=== PATIENT | male | born 1970 | race Caucasian/White ===

== ENCOUNTER 2024-06-14 13:47 | Outpatient (REF) | payer MEDICARE, MEDICAID, SELFPAY ==
--- NOTE | ~2024-06-14 | XR_ITS ---
EXAMINATION: XR CHEST CLINICAL INFORMATION: chronic cough, rhoncus on PE COMPARISON: July 07, 2006 is not available on PACS. TECHNIQUE: 2 views of the chest were obtained. FINDINGS: No consolidation, pleural effusion or pneumothorax. Subsegmental atelectasis versus scarring, right middle lung lobe. Cardiomediastinal silhouette size is normal. Calcified plaque thoracic aortic arch. Mild to moderate multilevel thoracic spondylosis. XR/XR chest 2V IMPRESSION: No acute airspace disease. Electronically signed by: Armando Acosta MD 06/14/2024 02:41 PM EDT
--- OUTSIDE RECORDS SUMMARY | 2024-06-14 16:08 | XMS_ITS | Clinical Summary ---
Author Organization [employer] Address [address] [facility] 7[address] [place] [address] Care Team Providers Care Probation And Parole Officer Name Role Phone Kray Maher Primary Care Provider [phone] Allergies No known active allergies Medications * This document contains information received from the source organization and may not represent a complete record from that organization. FLUoxetine (PROzac) 20 MG capsuleIndications:De pressive disorder TOME RAMÍREZ CAPSULA TODOS LOS CURTIS EN LA MANANA 90 capsule 3 3 Active gemfibrozil (Lopid) 600 MG tabletIndications:Pur e hyperglyceridemia TOME RAMÍREZ TABLETA POR VIA ORAL DOS VECES AL SIXTO 30 MINUTES BEFORE MORNING AND EVENING MEAL 180 tablet 3 3 Active azithromycin (Zithromax) 250 MG tabletIndications:Bro nchitis Take 2 tabs PO daily x 1d then 1 tab PO daily on D2 to D5 6 tablet 5 Active predniSONE (Deltasone) 20 MG tabletIndications:Bro nchitis Take 3 tablets (60 mg) by mouth Once per day for 5 days. 15 tablet 5 025 Active Active Problems Problem Noted Date Diagnosed Date Bronchitis 06/14/2024 Assessment & Plan (06/14/2024 2:41 PM EDT): I advised to drink plenty of fluids and rest Chest x-ray ordered patient will be contacted with results I will treat patient with Z-Rodney and prednisone for 5 days Patient reports he has had an episode similar to this before and he was hospitalized due to bronchitis he tells me his oxygen went down during hospitalization in light of this information I decided to put a referral in to pulmonology ED precautions reviewed with patient Grief 02/12/2024 Adjustment disorder with depressed mood 02/12/20 24 Soft tissue infection 01/09/2023 01/09/2023 Tachycardia 01/09/2023 01/09/2023 Depressive disorder 12/24/2013 01/09/2023 Pure hyperglyceridemia 10/20/2011 Essential hypertension 09/08/2011 3 Insomnia 09/08/2011 01/09/2023 Proteinuria 09/08/2011 01/09/2023 Mild intellectual disability 1970 Encounters Date Type Department Care Team Description 06/14/2024 1:00 PM EDT Office Visit [facility] [place] [address] Diana Kerr MD Bronchitis from Last 3 Months Immunizations Name Administration Dates Next Due Influenza injectable quadrivalent preservative f ree 01/04/2023 Influenza, seasonal, injectable, preservative fr ee 02/26/2024 Pfizer Covid-19 Vaccine 12+ travis-sucrose (Carpenter C ap) 09/14/2020,08/24/2020 Tdap 06/14/2021 Social History Tobacco Use Types Packs/Day Years Used Date Smoking Tobacco: Never Passive Smoke Exposure: Never Smokeless Tobacco: Never Tobacco Cessation:Counseling Given: Not Answered Alcohol Use Standard Drinks/Week Comments Never 0 (1 standard drink = 0.6 oz pur e alcohol) Depression Answer Date Recorded Patient Health Questionnaire-9 Score 11 02/12/2024 Patient Health Questionnaire-9 Score 11 02/12/2024 Last PHQ-9: Questionnaire Data Not on file 1 04/13/2023 Housing Stability Answer Date Recorded What is your housing situation today? I have conchita rodriguez 01/10/[address] you li ve. Do you have problems with any of the following? None of the above 01/10/2023 Food Insecurity Answer Date Recorded Within the past 12 months, y ou worried that your food would run out before you got money to buy more: Never True 01/10/2023 Within the past 12 months,th e food you bought just didn't last and you didn't have enough money to get more: Never True Transportation Answer Date Recorded In the past 12 months, has l ack of transportation kept you from medical appts, meetings, work or from getting things needed for daily living? No 01/10/2023 Utilities Answer Date Recorded In the past 12 months, has t he electric, gas, oil or water company threatened to shut off services in your home? No 01/10/2023 Depression Answer Date Recorded Patient Health Questionnaire-2 Score 3 02/12/2024 Sex and Gender Information Value Date Recorded Sex Assigned at Male 01/24/2022 10:16 AM EDT Legal Sex Male 10:16 AM EDT Gender Identity Male 01/24/2022 10:16 AM EDT Sexual Orientation Straight 01/24/2022 10 :16 AM EDT Last Filed Vital Signs Vital Sign Reading Time Taken Comments Blood Pressure 128/93 06/14/2024 12:50 PM EDT Pulse 103 06/14/2024 12:50 PM EDT Temperature 36.7 ??C (98 ??F) 06/14/2024 12:50 PM EDT Respiratory Rate 20 06/14/2024 12:50 PM EDT Oxygen Saturation 94% 06/14/2024 12:50 PM EDT Inhaled Oxygen Concentration - - Weight 70.8 kg (156 lb) 06/14/2024 12:50 PM EDT Height 163.8 cm (5' 4.5 ) 06/14/2024 12:50 PM ED T Body Mass Index 26.36 06/14/2024 12:50 PM EDT Plan of Treatment Upcoming Encounters Date Type Department Care Team (Late st Contact Info) Description 07/01/2024 9:30 AM EDT Office Visit [facility] [address] [place] [address] Kary Maher ANP [address] [place], [place] [phone] Health Maintenance Due Date Last Done Comments CT Colonography 1969 Colonoscopy 1969 FIT 1970 FOBT 1970 Sigmoidoscopy 1969 Alcohol/Substance Use Screening 1981 Hepatitis B Vaccines (1 of 3 - 19+ 3-dose series) 1988 Pneumococcal Vaccine: 50+ Years (1 of 1 - PCV) 2019 Zoster Vaccines (1 of 2) 2019 COVID-19 Vaccine (5 - season) 2023 07/06/2021, 03/09/2021, 09/14/2020, Additional history exists SDOH Screening 01/11/2024 01/10/2023 Depression Monitoring (PHQ-9) 08/11/2024 02/12/2024, 02/12/2024 Depression Screening 02/11/2025 02/12/2024, 02/12/20 24 Tobacco Screening 06/14/2025 06/14/2024 Colorectal Cancer Screening 01/16/2026 FIT DNA/Cologuard 01/16/2026 01/16/2023 Lipid Panel 05/10/2026 05/10/2021 DTaP/Tdap/Td Vaccines (2 - Td or Tdap) 06/15/2031 06/14/2021 RSV Patients and Patients Aged 60 years or older (1 - 1-dose 75+ series) 2044 HIV Screening Completed 05/10/2021 Hepatitis C Screening Completed 05/10/2021 Influenza Vaccine Completed 02/26/2024, 01/04/2023 HIB Vaccines Aged Out No longer eligi ble based on patient's age to complete this topic HPV Vaccines Aged Out No longer eligi ble based on patient's age to complete this topic Hepatitis A Vaccines Aged Out No long er eligible based on patient's age to complete this topic IPV Vaccines Aged Out No longer eligi ble based on patient's age to complete this topic Meningococcal Vaccine Aged Out No ahmet tomas eligible based on patient's age to complete this topic RSV under 20 months Aged Out No longe r eligible based on patient's age to complete this topic Rotavirus Vaccines Aged Out No longer eligible based on patient's age to complete this topic Procedures Procedure Name Priority Date/Time Associated Diagnosis Comments XR CHEST 2 VIEWS Routine 06/14/2024 1:50 PM EDT Bronchitis POCT COVID-19 AG MEYERS ID NOW Routine 06/14/2024 1:36 PM EDT Bronchitis POCT INFLUENZA A (ID NOW RAPID MOLECULAR) Routine 06/14/2024 1:36 PM EDT Bronchitis POCT INFLUENZA B (ID NOW RAPID MOLECULAR) Routine 06/14/2024 1:25 PM EDT Bronchitis LAB COLOGUARD?? COLON CANCER SCREEN Routine 01/16/2023 9:00 AM EDT Screening for malignant neoplasm of colon ZZZ HISTORICAL HEPATITIS C AB W/REFL TO HCV RNA, QN, PCR Routine 05/10/2021 10:31 AM EST HIV 1/2 ANTIGEN/ANTIBODY, FOURTH GENERATION W/RFL Routine 05/10/2021 10:31 AM EST LIPID PANEL, STANDARD Routine 05/10/2021 10:31 AM EST from Last 3 Months or Most Recently Relevant to Health Maintenance Results * XR Chest 2 Views (06/14/2024 1:50 PM EDT) Anatomical Region Laterality Modality Chest Radiographic Chela ging 06/14/2024 1:50 PM EDT Narrative 06/14/2024 2:44 PM EDT ?[facility] ?[address] ?[place] [id number] ?XRay Report ? Signed ? Patient: Renner,Allen ?MR#: [id number] ?? 65 ? : 1970 ?Acct:[id number] ? Age/Sex: 54 / M ?ADM Date: 06/14/24 ? Loc: HO.HHCX ? Attending Dr: Diana Kevin MD ? Ordering Physician: Diana Kerr MD ?? Date of Service: 06/14/24 ?? Procedure(s): XR chest 2V ?? Accession Number(s): [id number] ? cc: Diana Kerr MD ? EXAMINATION: ?? XR CHEST ? CLINICAL INFORMATION: ?? chronic cough, rhoncus on PE ? COMPARISON: ?? July 07, 2006 is not available on PACS. ? TECHNIQUE: ?? 2 views of the chest were obtained. ? FINDINGS: ?? No consolidation, pleural effusion or pneumothorax. ?? Subsegmental atelectasis versus scarring, right middle lung lobe. ?? Cardiomediastinal silhouette size is normal. Calcified plaque thoracic ?? aortic arch. Mild to moderate multilevel thoracic spondylosis. ? XR/XR chest 2V ?? IMPRESSION: ?? No acute airspace disease. ? Electronically signed by: ??Armando Acosta MD ??06/14/2024 02:41 PM ?? EDT RP ? Dictated By: ?Armando Rahman MD ? Signed By: ?<Electronically signed by Armando Osorio MD in OV> ? 06/14/24 1441 ? DD/ 1350 ? TD/TT: 06/14/24 1413 ? Glass Beveller: ? Procedure Note Roxanne Stanley - 06/14/2024 [place] [address] XRay Report Signed Patient: Allen RennerMR#: [id number] 65 : 1970Acct:[id number] Age/Sex: 54 / MADM Date: 06/14/24 Loc: HO.HHCX Attending Dr: Diana Kevin MD Ordering Physician: Diana Kerr MD Date of Service: 06/14/24 Procedure(s): XR chest 2V Accession Number(s): [id number] cc: Diana Kerr MD EXAMINATION: XR CHEST CLINICAL INFORMATION: chronic cough, rhoncus on PE COMPARISON: July 07, 2006 is not available on PACS. TECHNIQUE: 2 views of the chest were obtained. FINDINGS: No consolidation, pleural effusion or pneumothorax. Subsegmental atelectasis versus scarring, right middle lung lobe. Cardiomediastinal silhouette size is normal. Calcified plaque thoracic aortic arch. Mild to moderate multilevel thoracic spondylosis. XR/XR chest 2V IMPRESSION: No acute airspace disease. Electronically signed by: Armando Acosta MD 06/14/2024 02:41 PM EDT Dictated By: Armando Rahman MD Signed By: <Electronically signed by Armando Osorio MDin OV> 06/14/24 1441 DD/ 1350 TD/TT: 06/14/24 1413 Glass Beveller: us Diana Kevin MD IMG XR PROCEDURES Fin al Result * POCT Rapid Influenza A MEYERS ID NOW (06/14/2024 1:36 PM EDT) Influenza A Negative Negative, Indeterminate [facility] QC Media Lot # [id number] [facility] Lot# Expiration Date [facility] Swab 06/14/2024 1:36 PM EDT Diana Kevin MD POINT OF CARE TEST EN TER/EDIT ORDERABLES Final Result Performing Organization Address City/State/[facility] Co de Phone Number [facility] [address] [place] [phone] * POCT Rapid Covid-19 MEYERS ID NOW (06/14/2024 1:36 PM EDT) Coronavirus Antigen PCR Negative Negative, Indeterminate, None Detected, Invalid, Specimen unsatisfactory for evaluation, Weakly Positive QC Media Lot # [id number] Lot# Expiration Date ,026 Swab 06/14/2024 1:36 PM EDT Diana Kevin MD POINT OF CARE TEST EN TER/EDIT ORDERABLES Final Result * POCT Rapid Influenza B MEYERS ID NOW (06/14/2024 1:25 PM EDT) Influenza B Negative Negative, Indeterminate [facility] QC Media Lot # [id number] [facility] Lot# Expiration Date [facility] Swab 06/14/2024 1:25 PM EDT us Diana Kevin MD POINT OF CARE TEST EN TER/EDIT ORDERABLES Final Result [facility] [address] [place] [address] [phone] * Cologuard?? colon cancer screening (01/16/2023 9:00 AM EDT) Cologuard Result Negative Negative 01/26/20 2:34 AM EDT [facility] (CLIA #:[id number]) Comment: NEGATIVE TEST RESULT. A negative Cologuard result indicates a low likelihood that a colorectal cancer (CRC) or advanced adenoma (adenomatous polyps with more advanced pre-malignant features) ??is present. The chance that a person with a negative Cologuard test has a colorectal cancer is less than 1 in 1500 (negative predictive value >99.9%) or has an ??advanced adenoma is less than ??5.3% (negative predictive value 94.7%). These data are based on a prospective cross-sectional study of 10,000 individuals at average risk for colorectal cancer who were screened with both Cologuard and colonoscopy. (Vladialmj T. et al, N Engl J Med 2014;370(14):1286- 1297) The normal value (reference range) for this assay is negative. COLOGUARD RE-SCREENING RECOMMENDATION: Periodic colorectal cancer screening is an important part of preventive healthcare for asymptomatic individuals at average risk for colorectal cancer. ??Following a negative Cologuard result, the [place] Cancer Society and U.S. Multi-Society Task Force screening guidelines recommend a Cologuard re-screening interval of 3 years. References: [place] [employer] Guideline for Colorectal Cancer Screening: https://www.cancer.org/cancer/ejkrf-dqexsm-hxdbrp/ecbyjorvg-crfbvtqgg-hyqhmzp/ac s-rec ommendations.html.; Ollie VERDE, Khalif RUSSELL, Tonio WongK, Colorectal Cancer Screening: Recommendations for Physicians and Patients from the U.S. Multi-Society Task Force on Colorectal Cancer Screening , Am J Gastroenterology 2017; 112:4139-6877. TEST DESCRIPTION: Composite algorithmic analysis of stool DNA-biomarkers with hemoglobin immunoassay. ?? Quantitative values of individual biomarkers are not reportable and are not associated with individual biomarker result reference ranges. Cologuard is intended for colorectal cancer screening of adults of either sex, 45 years or older, who are at average-risk for colorectal cancer (CRC). Cologuard has been approved for use by the U.S. FDA. The performance of Cologuard was established in a cross sectional study of average-risk adults aged 50-84. Cologuard performance in patients ages 45 to 49 years was estimated by sub-group analysis of near-age groups. Colonoscopies performed for a positive result may find as the most clinically significant lesion: colorectal cancer [4.0%], advanced adenoma (including sessile serrated polyps greater than or equal to 1cm diameter) [20%] or non- advanced adenoma [31%]; or no colorectal neoplasia [45%]. These estimates are derived from a prospective cross-sectional screening study of 10,000 individuals at average risk for colorectal cancer who were screened with both Cologuard and colonoscopy. (Melissa Oliver et al, N Engl J Med 2014;370(14):6614-2952.) Cologuard may produce a false negative or false positive result (no colorectal cancer or precancerous polyp present at colonoscopy follow up). A negative Cologuard test result does not guarantee the absence of CRC or advanced adenoma (pre-cancer). The current Cologuard screening interval is every 3 years. ([place] [employer] and U.S. Multi-Society Task Force). Cologuard performance data in a 10,000 patient pivotal study using colonoscopy as the reference method can be accessed at the following location: www.GigPark/results. Additional description of the Cologuard test process, warnings and precautions can be found at www.MPOWER Mobilerd.com. Stool specimen (specimen) 01/16/2023 9:00 AM EDT 01/18/2023 9:[address] [facility] MOLECULAR DIAGNOSTICS ORDERA BLES Final Result [facility] (CLIA #:[id number]) [place] [address], * HEPATITIS C AB W/REFL TO HCV RNA, QN, PCR (05/10/2021 10:31 AM EST) HEPATITIS C ANTIBODY NON-REACT JACI NON-REACT JACI [facility] INDEX 0.01 <1.00 [facility] Comment: ?? HCV antibody was non-reactive. There is no laboratory ?? evidence of HCV infection. ?? In most cases, no further action is required. However, if recent HCV exposure is suspected, a test for HCV RNA (test code 02335) is suggested. ?? For additional information please refer to http://Spotify.Clone/faq/RYZ17w1 (This link is being provided for informational/ educational purposes only.) ?? 05/10/2021 10:3 1 AM EST us Kary Maher ANP HISTORICAL/NON ORDERABLE LABS Fi nal Result [facility] [address] * HIV 1/2 ANTIGEN/ANTIBODY,FOURTH GENERATION W/RFL (05/10/2021 10:31 AM EST) Pathologist [facility] HIV-1/2 ANTIGEN AND ANTIBODIES, 4TH GENERATION W/ REFLEX NON-REACT JACI NON-REACT JACI [facility] Comment: HIV-1 antigen and HIV-1/HIV-2 antibodies were not detected. There is no laboratory evidence of HIV infection. ?? PLEASE NOTE: This information has been disclosed to you from records whose confidentiality may be protected by state law. ??If your state requires such protection, then the state law prohibits you from making any further disclosure of the information without the specific written consent of the person to whom it pertains, or as otherwise permitted by law. A general authorization for the release of medical or other information is NOT sufficient for this purpose. ? For additional information please refer to http://Spotify.Clone/faq/FSY412 (This link is being provided for informational/ educational purposes only.) ? The performance of this assay has not been clinically validated in patients less than 2 years old. ?? 05/10/2021 10:3 1 AM EST us Preston Gunnar DE LEÓN LAB BLOOD ORDERABLES Final Resul t Performing Organization Address [facility] Co de Phone Number [facility] [address] * (ABNORMAL) LIPID PANEL, STANDARD (05/10/2021 10:31 AM EST) Chol/HDLC Ratio 5.3(H) <5.0 (calc) [facility] Cholesterol, Total 226(H) <200 mg/dL [facility] HDL Cholesterol 43 > OR = 40 mg/dL [facility] LDL Cholesterol 142(H) mg/dL (calc) [facility] Comment: Reference range: <100 ?? Desirable range <100 mg/dL for primary prevention; ?? <70 mg/dL for patients with CHD or diabetic patients ?? with > or = 2 CHD risk factors. ?? LDL-C is now calculated using the Dalton ?? calculation, which is a validated novel method providing ?? better accuracy than the Friedewald equation in the ?? estimation of LDL-C. ?? Willem WEATHERS et al. SORIN. 2013;310(19): 5437-1928 ?? (http://education.H2Mob/faq/ITV315) Non-HDL Cholesterol 183(H) <130 mg/dL (calc) [facility] Comment: For patients with diabetes plus 1 major ASCVD risk ?? factor, treating to a non-HDL-C goal of <100 mg/dL ?? (LDL-C of <70 mg/dL) is considered a therapeutic ?? option. Triglycerides 265(H) <150 mg/dL [facility] Comment: ?? If a non-fasting specimen was collected, consider repeat triglyceride testing on a fasting specimen if clinically indicated. ?? Taz et al. J. of Clin. Lipidol. 2015;9:129-169. ?? 05/10/2021 10:3 1 AM EST us Preston Gunnar ANP LAB BLOOD ORDERABLES Final Resul t Performing Organization Address City/[facility]/ZIP Co de Phone Number [facility] [address] from Last 3 Months or Most Recently Relevant to Health Maintenance [place] [address] [address] [employer]ARE [facility] MEDICARE ADVANTAGE Care Teams Probation And Parole Officer Relationship Specialty Start Date End Date Kary Maher ANP [address] [place] [phone] PCP - General Family Medicine 04/19/21
--- OUTSIDE RECORDS SUMMARY | 2024-06-14 16:08 | XMS_ITS | Encounter Summary ---
Author Organization [employer] Address [address] [facility] [address] [place] [address] Care Team Providers Care Natural Resources Technician Name Role Phone Kary Maher GENET Primary Care Provider [phone] Encounter Details Date Type Department Care Team ([facility] Contact Info) Description 05/16/2023 Orders Only [facility] [address] [place] [address] ProviderCarole MD Social History Tobacco Use Types Packs/Day Years Used Date Smoking Tobacco: Never Smokeless Tobacco: Never Alcohol Use Standard Drinks/Week Comments Never 0 (1 standard drink = 0.6 oz pur e alcohol) Depression Answer Date Recorded Patient Health Questionnaire-9 Score 12 01/10/2023 Patient Health Questionnaire-9 Score 12 01/10/2023 Last PHQ-9: Questionnaire Data Not on file 1 Housing Stability Answer Date Recorded What is [...] Answer Date Recorded Patient Health Questionnaire-2 Score 4 01/10/2023 Sex and Gender Information Value Date Recorded Sex Assigned at Male 01/24/2022 10:16 AM EDT Legal Sex Male 10:16 AM EDT Gender Identity Male 01/24/2022 10:16 AM EDT Sexual Orientation Straight 01/24/2022 10 :16 AM EDT documented as of this encounter Plan of Treatment Upcoming Encounters Date Type Department Care Team (Late st Contact Info) Description 07/01/2024 9:30 AM EDT Office Visit [facility] [address] [place] [address] Kary Maher ANP [address] [place] [address] documented as of this encounter Procedures Procedure Name Priority Date/Time Associated Diagnosis Comments PULMONARY FUNCTION TESTING Routine 01/17/2022 11:07 AM EDT documented in this encounter Results * Pulmonary function testing (01/17/2022 11:07 AM EDT) us Historical Provider MD PFT ORDERABLES Final Res ult documented in this encounter Visit Diagnoses Not on filedocumented in this encounter Additional Health Concerns Assessment Noted Time PHQ-9 Depression Total Score: 12 023 2:44 PM EDT documented as of this encounter Care Teams Natural Resources Technician Relationship Specialty Start Date End Date Kary Maher ANP [address] [place] [address] PCP - General Family Medicine 04/19/21 documented as of this encounter
--- OUTSIDE RECORDS SUMMARY | 2024-06-14 16:08 | XMS_ITS | Encounter Summary ---
Author Organization [employer] [facility] Address [address] [facility] 7t [place] [address] Care Team Providers Care Pouncer Machine Name Role Phone Kary Maher Primary Care Provider [phone] Reason for Referral * Consultation (Routine) - Pending Review Specialty Diagnoses / Procedures Referred By Jeronimo quick Referred To Contact Pulmonary Disease Diagnoses Bronchitis Diana Kerr MD [address] [place] [phone] Phone: tel: fax: Referral ID Status Reason Start Date Expiration Date Visits Requested Visits Authorized [id number] Pending Review Specialty Services Required 06/14/2024 06/14/2025 1 1 Encounter Details Date Type Department Care Team ([facility] st Contact Info) Description 06/14/2024 1:00 PM EDT Office Visit [facility] [address] [place] [phone] Diana Kerr MD [address] [place] [phone] Bronchitis Social History Tobacco Use Types Packs/Day Years [...] AM EDT documented as of this encounter Last Filed Vital Signs Vital Sign Reading [...] Mass Index 26.36 06/14/2024 12:50 PM EDT documented in this encounter Progress Notes * Diana Kevin MD - 06/14/2024 1:00 PM EDT SUBJECTIVE: Allen Renner is a 54 y.o. year old male who presents for cough . Acute Concerns: Patient reports he has been having for the cough with white phlegm for the past 2 months, he also reports body aches chest pain with cough he also reports a week ago he had 1 episode of fever and he has been having nausea and a few episodes of diarrhea denies recent travel or sick contacts Social History Social History Narrative Not on file Patient Active Problem List Diagnosis Depressive disorder Essential hypertension Insomnia Mild intellectual disability Proteinuria Pure hyperglyceridemia Soft tissue infection Tachycardia Grief Adjustment disorder with depressed mood Bronchitis No family history on file. Review of Systems Constitutional: Positive for chills and fatigue. Negative for activity change, appetite change, diaphoresis, fever and unexpected weight change. HENT: Negative. Respiratory: Positive for cough and chest tightness. Negative for apnea, choking, shortness of breath, wheezing and stridor. Pleuritic chest pain Cardiovascular: Negative. Gastrointestinal: Positive for diarrhea and nausea. Negative for abdominal distention, abdominal pain, anal bleeding, blood in stool, constipation, rectal pain and vomiting. Neurological: Negative. OBJECTIVE: Vitals: 06/14/24 1250 BP: (!) 128/93 BP Location: Left arm Patient Position: Sitting BP Cuff Size: Adult Pulse: 103 Resp: 20 Temp: 98 ??F (36.7 ??C) TempSrc: Oral SpO2: 94% Weight: 156 lb (70.8 kg) Height: 5' 4.5 (1.638 m) Physical Exam Constitutional: Appearance: Normal appearance. Cardiovascular: Rate and Rhythm: Normal rate and regular rhythm. Pulmonary: Effort: Pulmonary effort is normal. Breath sounds: Rhonchi present. Abdominal: General: Abdomen is flat. Palpations: Abdomen is soft. Musculoskeletal: Right lower leg: No edema. Left lower leg: No edema. Neurological: Mental Status: He is alert. Follow Up: No follow-ups on file. Current Outpatient Medications on File Prior to Visit Medication Sig Dispense Refill FLUoxetine (PROzac) 20 MG capsule TOME RAMÍREZ CAPSULA TODOS LOS CURTIS EN LA MANANA 90 capsule 3 gemfibrozil (Lopid) 600 MG tablet TOME RAMÍREZ TABLETA POR VIA ORAL DOS VECES AL SIXTO 30 MINUTES BEFORE MORNING AND EVENING MEAL 180 tablet 3 No current facility-administered medications on file prior to visit. Problem List Items Addressed This Visit Bronchitis I advised to drink plenty of fluids [...] to pulmonology ED precautions reviewed with patient Relevant Medications azithromycin (Zithromax) 250 MG tablet predniSONE (Deltasone) 20 MG tablet Other Relevant Orders XR Chest 2 Views Referral to Pulmonology POCT Rapid Influenza B MEYERS ID NOW (Completed) POCT Rapid Influenza A MEYERS ID NOW (Completed) POCT Rapid Covid-19 MEYERS ID NOW (Completed) documented in this encounter Miscellaneous Notes * Assessment & Plan Note - Diana Kevin MD - 06/14/2024 2:41 PM EDT Associated Problem(s): Bronchitis I advised to drink plenty of fluids [...] to pulmonology ED precautions reviewed with patient documented in this encounter Plan of Treatment Upcoming Encounters Date Type Department Care Team (Late st Contact Info) Description 07/01/2024 9:30 AM EDT Office Visit [facility] [address] [place] [address] Kary Maher ANP [address] [place] [address] Scheduled Referrals Name Type Priority Associated Diagnoses Order Schedule Referral to Pulmonology Outpatient Referral Routine Bronchitis Expected: 06/14/2024 (Approximate), Expires: 06/14/2025 documented as of this encounter Procedures Procedure Name Priority Date/Time Associated Diagnosis Comments XR CHEST 2 VIEWS Routine 06/14/2024 1:50 PM EDT Bronchitis POCT INFLUENZA A (ID NOW RAPID MOLECULAR) Routine 06/14/2024 1:36 PM EDT Bronchitis POCT COVID-19 AG MEYERS ID NOW Routine 06/14/2024 1:36 PM EDT Bronchitis POCT INFLUENZA B (ID NOW RAPID MOLECULAR) Routine 06/14/2024 1:25 PM EDT Bronchitis documented in this encounter Results * XR Chest 2 Views (06/14/2024 1:50 PM EDT) Anatomical Region Laterality Modality Chest Radiographic Chela ging 06/14/2024 1:50 PM EDT Narrative 06/14/2024 2:44 PM EDT ?[facility] ?[address] ?[place] [address] ?XRay Report ? Signed ? Patient: Allen Renner ?MR#: [id number] ?? 65 ? : 1970 ?Acct:[id number] ? Age/Sex: 54 / M ?ADM Date: 06/14/24 ? Loc: HO.HHCX ? Attending Dr: Diana Kevin MD ? Ordering Physician: Diana Kerr MD ?? Date of Service: 06/14/24 ?? Procedure(s): XR chest 2V ?? Accession Number(s): [id number] ? cc: Diana Kerr MD ? EXAMINATION: [...] DD/ 1350 ? TD/TT: 06/14/24 1413 ? Staff Reporter: ? Procedure Note Donfabian, Image - 06/14/[address] [address] XRay Report Signed Patient: Allen RennerMR#: [id number] 65 : 1970Acct:[id number] Age/Sex: 54 / MADM Date: 06/14/24 Loc: .HHCX Attending Dr: Diana Kevin MD Ordering Physician: Diana Kerr MD Date of Service: 06/14/24 Procedure(s): XR chest 2V Accession Number(s): [id number] cc: Diana Kerr MD EXAMINATION: XR CHEST [...] 06/14/24 1441 DD/ 1350 TD/TT: 06/14/24 1413 Staff Reporter: Diana Kevin MD IMG XR PROCEDURES Fin al Result * POCT Rapid Covid-19 MEYERS ID NOW (06/14/2024 1:36 PM EDT) [facility] Coronavirus Antigen PCR Negative Negative, Indeterminate, None Detected, Invalid, Specimen unsatisfactory for evaluation, Weakly Positive QC Media Lot # [id number] Lot# Expiration Date 942,026 Swab 06/14/2024 1:36 PM EDT Diana Kevin MD POINT OF CARE TEST EN TER/EDIT ORDERABLES Final Result * POCT Rapid Influenza A MEYERS ID NOW (06/14/2024 1:36 PM EDT) [facility] Influenza A Negative Negative, Indeterminate [facility] QC Media Lot # [id number] [facility] Lot# Expiration Date [facility] Swab 06/14/2024 1:36 PM EDT Diana Kevin MD POINT OF CARE TEST EN TER/EDIT ORDERABLES Final Result Performing Organization Address [facility]/ZIP Co de Phone Number [facility] [address] [place] [address] [phone] * POCT Rapid Influenza B MEYERS ID NOW (06/14/2024 1:25 PM EDT) [facility] Influenza B Negative Negative, Indeterminate [facility] QC Media Lot # [id number] [facility] Lot# Expiration Date [facility] Swab 06/14/2024 1:25 PM EDT Diana Kevin MD POINT OF CARE TEST EN TER/EDIT ORDERABLES Final Result [facility] [address] [place] [phone] [phone] documented in this encounter Visit Diagnoses Diagnosis Bronchitis Bronchitis, not specified as acute or chronic documented in this encounter Additional Health Concerns Assessment Noted Time PHQ-9 Depression Total Score: 11 024 1:03 PM EST documented as of this encounter Care Teams Pouncer Machine Relationship Specialty Start Date End Date Kary Maher ANP [address] [place] [address] PCP - General Family Medicine 04/19/21 documented as of this encounter
== END 2024-06-14 13:48 | disposition home or self-care (01) ==
LOC: HO.HHCX 13:47
PROVIDERS: Visit Provider Internal Medicine
DX: J40 Bronchitis, not specified as acute or chronic (principal)
CPT/HCPCS: 71046

== ENCOUNTER → 2024-06-14 13:50 | Outpatient (BNV) | payer MEDICARE, MEDICAID, SELFPAY | PROVIDERS: Visit Provider Radiology Diagnostic Radiology | DX: R05.9 Cough, unspecified (principal) | CPT/HCPCS: 71046 ==

== ENCOUNTER 2024-07-01 14:41 | Emergency (ER) | payer MEDICARE, MEDICAID, SELFPAY ==
[2024-07-01] VITALS (9 sets, daily range): BP systolic 112–138; BP diastolic 73–90; PULSE 72–114; RESP 12–20; TEMP 36.4–36.8; O2SAT 88–97; BMI 25.1
--- NOTE | ~2024-07-01 | CT_ITS ---
CLINICAL HISTORY: hypoxia, pleuritic L sided chest pain CT angiography chest with contrast. 3D Postprocessing. Comparison: None Findings: The heart is normal size. RV/LV ratio is normal. Unremarkable thoracic aorta and great vessels. No aneurysm. No central or large proximal pulmonary emboli. Remaining pulmonary arteries are poorly opacified, not well evaluated, specifically in the right lower lobe pulmonary arteries. The visualized thyroid and mediastinum are unremarkable. Pgcpf-igikalp-kqsw-left bilateral atelectasis. No significant pleural effusion or pneumothorax. Motion and streak artifact limit evaluation. Hepatic steatosis noted. Osteopenia with diffuse multilevel spondylosis. IMPRESSION: 1. Motion degraded exam. 2. No central or large proximal pulmonary emboli. Remaining pulmonary arteries are poorly opacified, not well evaluated, specifically in the right lower lobe pulmonary arteries. 3. Ywfom-bxzjrci-qhsy-left bilateral atelectasis. This document has been electronically signed by: Rei Call MD on 07/01/2024 19:20:11
--- NOTE | 2024-07-01 14:57 | ECG_ITS ---
Test Reason : CHEST PAIN Blood Pressure : */* mmHG Vent. Rate : 81 BPM Atrial Rate : 81 BPM P-R Int : 138 ms QRS Dur : 76 ms QT Int : 380 ms P-R-T Axes : 47 7 38 degrees QTcB Int : 441 ms Sinus rhythm with artifact When compared with ECG of 08-Jul-2006 06:45, Poor data quality in current ECG precludes serial comparison Referred By: Generic ED Physician Electronically Signed By: Diony Ortez
[2024-07-01 15:33] LABS: MANUAL DIFF FLAG NO
[2024-07-01 15:35] LABS: Basophils Absolute Auto 0.1 X10*3/uL (0.0-0.2); Basophils Percent Auto 1.1 % (0-2); Eosinophils Absolute Auto 0.1 X10*3/uL (0.0-0.4); Eosinophils Percent Auto 1.6 % (0-4); Hematocrit 48.1 % (42.0-52.0); Hemoglobin 16.8 g/dl (14.0-18.0); Imm Gran Abs Auto 0.02 X10*3/uL (0.00-0.03); Imm Gran Pct Auto 0.3 % (0.0-0.4); Lymphocytes Absolute Auto 2.6 X10*3/uL (1.2-4.9); Lymphocytes Percent Auto 34.7 % (20-40); Mean Corpuscular HGB Conc 34.9 g/dl (31.0-36.0); Mean Corpuscular Hemoglobin 30.3 pg (27.0-33.0); Mean Corpuscular Volume 86.8 fL (80.0-98.0); Mean Platelet Volume 10.9 fL (9.4-12.4); Monocytes Absolute Auto 0.6 X10*3/uL (0.1-1.2); Monocytes Percent Auto 7.4 % (2-11); Neutrophils Absolute Auto 4.2 x10*3/uL (2.0-8.3); Neutrophils Percent Auto 54.9 % (45-73); Platelet Count 260 X10*3/uL (160-400); Red Blood Count 5.54 X10*6/uL (4.60-5.80); Red Cell Distribution Width 13.3 % (11.0-16.0); White Blood Count 7.6 X10*3/uL (4.8-10.8)
--- NOTE | 2024-07-01 15:37 | ED_ITS ---
HPI - Chest Pain General Chief Complaint: Chest Pain Stated Complaint: CP FROM DR OFFICE PER EMS Time Seen by Provider: 07/01/24 14:46 Source: patient, EMS, old records reviewed and cytotechnologist supervisor Mode of arrival: EMS Limitations: no limitations History of Present Illness ED Provider: FREDIS ALMARAZ narrative: 54 yo male with PMH of HLD who was in [place] from March until 06/11 when he was there staying with his mom they both had cough, sputum, fevers. He did get an xray which showed bronchial inflammation. He comes in today as he has been really feeling dyspnea and short of breath with exertion. He started to have R sided pleuritic chest pain today. He went to [facility] and was found to be hypoxic - en route given aspirin and nitro no relief. He was found to be 88% on RA started on 3L NC. He states he never smoked and he has not had any issues with his lungs. He has no hemoptysis and no weight loss. He did have night sweats when he was in [facility]. MD complaint: chest pain (pleuritic R sided chest pain) Prior episodes: No Onset: during rest Pain location: right chest Pain radiation: none Severity: moderate Quality: sharp Relieving factors: nothing Exacerbating factors: inspiration Context: recent illness and recent travel Associated symptoms: dyspnea Treatment prior to arrival: aspirin, nitroglycerin (no relief) and oxygen Related Data Previous Rx's ?Medication ?Instructions ?Recorded albuterol sulfate 90 mcg/actuation 2 puff inhalation Q6H PRN 07/01/24 aerosol inhaler shortness of breath or wheezing #8.5 grams cefuroxime axetil 500 mg tablet 500 mg PO BID 7 days #14 tabs 07/01/24 prednisone 20 mg tablet 40 mg (2 x 20 mg) PO DAILY #10 tabs 07/01/24 Allergies Allergy/AdvReac Type Severity Reaction Status Date / Time No Known Allergies Allergy Unknown Unverified 07/01/24 14:53 Review of Systems 2 Review of Systems: Constitutional : No Weight loss, No Fever, No Chills ENT/Mouth : No sore throat, No Rhinorrhea Eyes: No Eye Pain, No Swelling Cardiovascular : pos Chest Pain, pos SOB, pos Dyspnea on Exertion, No Orthopnea, No Edema, No Palpitations Respiratory : pos Cough, No Sputum Gastrointestinal : no Nausea, No Vomiting, No Diarrhea, No abdominal Pain, No Hematochezia, No Melena Genitourinary : No Dysuria, No Urinary Frequency Musculoskeletal : No joint pain, No Myalgias, No Joint Swelling Skin : No Skin Lesions, No rash Neuro : No Weakness, No Numbness, No Dizziness, No Headache All other systems reviewed and are negative [facility] Past Medical History Attestation statement: The following information was validated with the patient. Source: old records reviewed Medical History Hyperlipidemia Social History Social History (Updated 07/01/24 @ 15:40 by Ladonna Evans DO) Patient Tobacco Use Status: Never used Tobacco Advance Directives: No Advance Directives Information Provided: No Physical Exam 2 Vital Signs: Vital Signs: Last Vital Signs Temp 97.6 F 07/01/24 20:42 Pulse 114 H 07/01/24 20:42 Resp 16 07/01/24 20:42 BP 123/73 07/01/24 20:42 Pulse Ox 92 07/01/24 20:48 O2 Del Method Room Air 07/01/24 20:42 O2 Flow Rate 4 07/01/24 18:14 BMI result Body Mass Index 25.1 Appearance: Alert. Oriented X3. No acute distress. Eyes: Pupils equal, round and reactive to light. ENT: Pharynx normal. Neck: Normal inspection. Neck supple. CVS: Normal heart rate and rhythm. Pulses normal. Respiratory: No respiratory distress. Breath sounds rales in both bases Abdomen: Soft and nontender. Skin: Skin warm and dry. Normal skin color. Extremities: No lower extremity edema. Neuro: Oriented X 3. No motor deficit. No sensory deficit. CN2-12 intact Medications Administered Discontinued Medications Generic Name Dose Route Start Last Admin Trade Name Freq PRN Reason Stop Dose Admin Albuterol Sulfate 2 puff 07/01/24 20:55 07/01/24 21:02 Albuterol Sulfate 90 Mcg 8 Gm Inhaler INHALE 07/01/24 20:56 2 puff ONCE ONE Administration Ceftriaxone Sodium 1 gm 07/01/24 15:31 07/01/24 15:38 Ceftriaxone Sodium 1 Gm Vial IVPUSH 07/01/24 15:32 1 gm ONCE ONE Administration Albuterol Sulfate 2.5 mg/ 0 mg 07/01/24 19:55 07/01/24 20:06 Albuterol/Ipratropium 3 ml INHALE 07/01/24 19:56 1 dose ONCE ONE Administration Iohexol 65 ml 07/01/24 18:33 07/01/24 18:34 Iohexol 350 Mg/Ml 100 Ml Infus..Btl IV 07/01/24 18:34 65 ml ONCE ONE Administration Methylprednisolone Sodium Succinate 125 mg 07/01/24 19:55 07/01/24 20:27 Methylprednisolone Sod Succ 125 Mg/2 Ml Vial IVPUSH 07/01/24 19:56 125 mg ONCE ONE Administration Medical Decision Making Medical Decision Making [facility] Narrative: 54 yo male with PMH of HLD who was in [place] for the last 3 months until 06/11 when there he and his mother had URI symptoms at this time he now has chest pain all day that is pleuritic he has rales in both bases - at this time labs, EKG, CTA:PE, BNP and troponin ordered. Viral panel ordered. Patient clinically with bronchitis with prolonged expiration increased cough mostly in the night and merchant patroller will give DuoNeb treatment prednisone CTA chest negative for PE ACS also ruled out Patient felt better after nebulizing did ambulate saturating 92% at room air will discharge patient home with antibiotic inhaler and prednisone for bronchitis Differential Diagnosis Differential Diagnoses: The differential diagnosis associated with the presentation includes CHF, URI, pneumonia, VTE Admission/Observation Consideration of admission/observation: Escalation of care including admission/observation considered Lab Data [facility] Lab Attestation statement: I reviewed the patient's lab results. 07/01/24 15:24 07/01/24 15:24 Labs: Lab Results 07/01/24 07/01/24 07/01/24 Range/Units 15:24 15:25 15:32 WBC 7.6 (4.8-10.8) X10*3/uL RBC 5.54 (4.60-5.80) X10*6/uL Hgb 16.8 (14.0-18.0) g/dl Hct 48.1 (42.0-52.0) % MCV 86.8 (80.0-98.0) fL MCH 30.3 (27.0-33.0) pg MCHC 34.9 (31.0-36.0) g/dl RDW 13.3 (11.0-16.0) % Plt Count 260 (160-400) X10*3/uL MPV 10.9 (9.4-12.4) fL Immature Gran % (Auto) 0.3 (0.0-0.4) % Neut % (Auto) 54.9 (45-73) % Lymph % (Auto) 34.7 (20-40) % Dundy % (Auto) 7.4 (2-11) % Eos % (Auto) 1.6 (0-4) % Baso % (Auto) 1.1 (0-2) % Lymph # (Auto) 2.6 (1.2-4.9) X10*3/uL Dundy # (Auto) 0.6 (0.1-1.2) X10*3/uL Eos # (Auto) 0.1 (0.0-0.4) X10*3/uL Baso # (Auto) 0.1 (0.0-0.2) X10*3/uL Abs Immat Gran (auto) 0.02 (0.00-0.03) X10*3/uL Absolute Neuts (auto) 4.2 (2.0-8.3) x10*3/uL Absolute Nucleated RBC 0.000 (0.0-0.012) X10*3/uL Nucleated RBC % (auto) 0.0 (0.0-0.2) /100WBC Hold Blue Top SEE NOTE VBG pH 7.36 (7.32-7.43) VBG pCO2 57 mmHg VBG pO2 28 mmHg VBG HCO3 32 H (22-26) mmol/L VBG O2 Saturation 41.0 % VBG Base Excess 5.2 mmol/L Sodium 140 (135-145) mmol/L Potassium 3.8 (3.3-5.1) mmol/L Chloride 103 (96-108) mmol/L Carbon Dioxide 28 (22-29) mmol/L Anion Gap 13 (12-20) BUN 13 (9-16) mg/dL Creatinine 0.79 (0.5-1.4) mg/dL Estim Creat Clear Calc 95.3 Estimated GFR > 60 Random Glucose 84 (60-115) mg/dL Lactic Acid 1.2 (0.5-2.0) mmol/L Calcium 9.4 (8.4-10.2) mg/dL Magnesium 2.3 (1.6-2.6) mg/dL Total Bilirubin 0.5 (0.0-1.0) mg/dL Direct Bilirubin 0.1 (0.0-0.5) mg/dL AST 22 (5-37) U/L ALT 29 (0-40) U/L Alkaline Phosphatase 75 (39-117) U/L Troponin I High Sens < 2.7 (<3.5-35.0) ng/L B-Natriuretic Peptide < 10 (<100) pg/mL Total Protein 7.9 (6.5-8.0) g/dL Albumin 4.4 (3.5-5.0) g/dL Influenza Type A (PCR) NEGATIVE (Negative) Influenza Type B (PCR) NEGATIVE (Negative) RSV RNA Qual (PCR) NEGATIVE (Negative) SARS-CoV-2 RNA (RT-PCR) NEGATIVE (Negative) Independent Interpretation I performed an independent interpretation of an: EKG and CT Scan Interpretation: Rate: 81 Rhythm: NSR [place]: normal Normal P waves. Normal TANYA. Normal QRS complex. ST T wave : artifact but no ARLENE, nonspecific ST T wave changes qTC: 441 prior studies: no prior The study has been interpreted contemporaneously by me. . Discharge Plan Discharge Clinical Impression: Bronchitis Patient Disposition: Home, Self-Care Instructions: Acute Bronchitis (ED) Additional Instructions: Use albuterol inhaler 2 puffs every 4-6 hours as needed Prednisone as prescribed Antibiotic as prescribed Follow with PCP if not better Prescriptions: New prednisone 20 mg tablet 40 mg PO DAILY Qty: 10 0RF cefuroxime axetil 500 mg tablet 500 mg PO BID 7 Days Qty: 14 0RF albuterol sulfate 90 mcg/actuation HFA aerosol inhaler 2 puff inhalation Q6H PRN (Reason: shortness of breath or wheezing) Qty: 8.5 0RF Print Language: Sami
[2024-07-01 15:38] LABS: VBG Base Excess 5.2 mmol/L; VBG HCO3 32 mmol/L (22-26); VBG pCO2 57 mmHg; VBG pH 7.36 (7.32-7.43); VBG pO2 28 mmHg
[2024-07-01] MEDS: cefTRIAXone sodium 1 GM VIAL IVPUSH (15:38)
[2024-07-01 15:40] LABS: Venous Blood Gas Refer to POC result
[2024-07-01 16:14] LABS: Lactic Acid 1.2 mmol/L (0.5-2.0)
[2024-07-01 16:18] LABS: Influenza A PCR NEGATIVE (Negative); Influenza B PCR NEGATIVE (Negative); Resp Syncy Virus RNA Qual PCR NEGATIVE (Negative); SARS COV2 PCR INHOUSE NEGATIVE (Negative)
[2024-07-01 16:28] LABS: Alanine Aminotransferase 29 U/L (0-40); Albumin Level 4.4 g/dL (3.5-5.0); Anion Gap 13 (12-20); Aspartate Amino Transferase 22 U/L (5-37); Bilirubin Direct 0.1 mg/dL (0.0-0.5); Bilirubin Total 0.5 mg/dL (0.0-1.0); Blood Urea Nitrogen 13 mg/dL (9-16); Calcium 9.4 mg/dL (8.4-10.2); Carbon Dioxide 28 mmol/L (22-29); Chloride 103 mmol/L (96-108); Creatinine Clr Calc Pharmacy 95.3; Estimated Glomerular Filt Rate > 60; Glucose Random 84 mg/dL (60-115); Magnesium 2.3 mg/dL (1.6-2.6); Potassium 3.8 mmol/L (3.3-5.1); Sodium 140 mmol/L (135-145); Total Protein 7.9 g/dL (6.5-8.0); Troponin-I High Sensitivity < 2.7 ng/L (<3.5-35.0)
[2024-07-01 16:44] LABS: B Type Natriuretic Peptide < 10 pg/mL (<100)
[2024-07-01 16:51] LABS: Alkaline Phosphatase 75 U/L (39-117)
--- OUTSIDE RECORDS SUMMARY | 2024-07-01 18:16 | XMS_ITS | Encounter Summary ---
Author Organization [employer] Address [address] [facility] [address] [place] [address] Care Team Providers Care Records Officer Name Role Phone Kary Maher GENET Primary Care Provider [phone] Encounter Details Date Type Department Care Team ([facility] Contact Info) Description 05/16/2023 Orders Only [facility] [address] [place] [address] ProviderCarole MD Social History Tobacco Use Types [...] Care Team (Late st Contact Info) Description 10/15/2024 2:15 PM EDT Office Visit [facility] MED[facility] [address] [place] [address] Kary Maher ANP [address] [place] [address] documented as of this encounter Procedures Procedure [...] documented as of this encounter Care Teams Records Officer Relationship Specialty Start Date End Date Kary Maher ANP [address] [place] [address] PCP - General Family Medicine 04/19/21 documented as of this encounter
--- OUTSIDE RECORDS SUMMARY | 2024-07-01 18:16 | XMS_ITS | Encounter Summary ---
Author Organization [employer] Address [address] [facility] [address] [place] [address] Care Team Providers Care Residential Roofer Helper Name Role Phone Kary Maher Primary Care Provider Encounter Details Date Type Department Care Team ([facility] st Contact Info) Description 07/01/2024 Telephone [facility] [address] [place] [address] Kary Maher ANP [address] [place] [address] Social History Tobacco Use Types Packs/Day Years Used Date Smoking Tobacco: Never Passive Smoke Exposure: Never Smokeless Tobacco: Never Alcohol Use Standard [...] AM EDT documented as of this encounter Miscellaneous Notes * Telephone Encounter - Jolly Madera RN - 07/01/2024 2:06 PM EDT Assessment: Patient presents to [facility] c/o palpitations. Symptoms have been present for roughly 1.5 hours. Symptoms are intermittent but present over last 1.5 hrs Symptoms are relieved by nothing. Patient is taking no new meds Recent ED visit or hospitalization: No. Pt presented to [facility] complaining of palpitations. Had appt with PCP OBIE Acuna this morning at 9:30am. States that he went to [facility] after his appointment and started having palpitations around 12:30pm and returned to [facility] around 1:48pm. Upon assessment,symptoms were palpitations, shortness of breath, and right arm pain that did not radiate. Denied chest pain, reported only palpitations. Vitals as below. Per standing orders, EKG obtained immediatelybased on symptoms and report given to PCP Kary Maher. Orders per PCP for pt to go to ER for further workup. 911 called at 2:04pm. Pt asked to go to hospital tomorrow not today, explained that symptoms concerning and advised of importance and recommendation by PCP to be seen today while having symptoms. After placing call, pt also reported dizziness and stated midsternal left chest pain. EMS arrived, performed another EKG, gave aspirin and nitroglycerin. Pt transported to [facility] ED. VS as follows (if applicable): HR 82 Resp 20 none BP 122/95 left Arm; Device: Manual Cuff Size: regular O2 sat 97 % on room air Pain level: 9, Location: 9.5/10 left chest pain In Office Testing EKG yes Plan of care: Report to Kary Maher. Tx call EMS now Call for transport to ED at 2:04pm Jolly Madera, RN documented in this encounter Plan of Treatment Upcoming Encounters Date Type Department Care Team (Late st Contact Info) Description 10/15/2024 2:15 PM EDT Office Visit [facility] [address] [place] [address] Kary Maher ANP [address] [place] [address] documented as of this encounter Visit Diagnoses Not on filedocumented in this encounter Additional Health Concerns Assessment Noted Time PHQ-9 Depression Total Score: 11 02/11/ 024 1:03 PM EST documented as of this encounter Care Teams Residential Roofer Helper Relationship Specialty Start Date End Date Kary Maher ANP [address] [place] [phone] PCP - General Family Medicine 04/19/21 documented as of this encounter
--- OUTSIDE RECORDS SUMMARY | 2024-07-01 18:16 | XMS_ITS | Clinical Summary ---
Author Organization [employer] Address [address] [facility] 7t [place] [address] Care Team Providers Care Transportation Agent Name Role Phone Kary Maher GENET Primary Care Provider [phone] Allergies No known active allergies Medications * This document contains information received from the source organization and may not represent a complete record from that organization. azithromycin (Zithromax) 250 MG tabletIndications:Br onchitis Take 2 tabs PO daily x 1d then 1 tab PO daily on D2 to D5 6 tablet 025 Active albuterol 108 (90 Base) MCG/ACT inhalerIndications:M ild intermittent asthma, unspecified whether complicated Inhale 2 puffs every 6 (six) hours if needed for shortness of breath or wheezing. 18 g 1 025 2025 Active atorvastatin (Lipitor) 20 MG tabletIndications:Hy pertriglyceridemia,A ortic calcification (CMS/HCC) Take 1 tablet (20 mg) by mouth Once per day. 90 tablet 3 025 2025 Active FLUoxetine (PROzac) 20 MG capsuleIndications:D epressive disorder TOME RAMÍREZ CAPSULA TODOS LOS CURTIS EN LA MANANA 90 capsule 3 023 2024 Discontinued(T herapy completed) gemfibrozil (Lopid) 600 MG tabletIndications:Pu re hyperglyceridemia TOME RAMÍREZ TABLETA POR VIA ORAL DOS VECES AL SIXTO 30 MINUTES BEFORE MORNING AND EVENING MEAL 180 tablet 3 023 2024 Discontinued(R eorder (will not trigger notification to Pharmacy)) predniSONE (Deltasone) 20 MG tabletIndications:Br onchitis Take 3 tablets (60 mg) by mouth Once per day for 5 days. 15 tablet 025 2024 gemfibrozil (Lopid) 600 MG tabletIndications:Pu re hyperglyceridemia TOME RAMÍREZ TABLETA POR VIA ORAL DOS VECES AL SIXTO 30 MINUTES BEFORE MORNING AND EVENING MEAL 180 tablet 3 025 2024 Discontinued(A lternate therapy) Active Problems Problem Noted Date Diagnosed Date Aortic calcification 07/01/2024 Overview (07/01/2024): on XR from [place], will likely recommend statin pending lab repeat Prediabetes 07/01/2024 Bronchitis 06/14/2024 Assessment & Plan (06/14/2024 2:41 [...] Depressive disorder 12/24/2013 01/09/2023 Pure hyperglyceridemia 10/20/2011 3 Essential hypertension 09/08/2011 3 Insomnia 09/08/2011 01/09/2023 Proteinuria 09/08/2011 01/09/2023 Mild intellectual disability 1970 Encounters Date Type Department Care Team Description 07/01/2024 9:30 AM EDT Office Visit [facility] [address] [place] [address] Kary Maher ANP Hypertriglyceridemia (Primary Dx); Essential hypertension; Prediabetes; Depressive disorder; Mild intermittent asthma, unspecified whether complicated; Aortic calcification (CMS/HCC); Chest pain, unspecified type 07/01/2024 Orders Only GENERIC EXTERNAL DATA DEPARTMENT Provider, Generic External Data 07/01/2024 Telephone [facility] [address] [place] [address] Kary Maher ANP 07/01/2024 Travel 06/21/2024 Patient Outreach [address] [address] Kary Maher ANP Pre-visit Planning (Pre-visit planning - LVM ) 06/19/2024 Telephone [facility] [address] [place] [phone] Diana Kerr MD 06/18/[address] [address] Kary Maher ANP Pure hyperglyceridemia 06/14/2024 1:00 PM EDT Office Visit [facility] [address] [address] Diana Kerr MD Bronchitis from Last 3 [...] Sign Reading Time Taken Comments Blood Pressure 132/84 07/01/2024 9:28 AM EDT Pulse 85 07/01/2024 9:28 AM EDT Temperature 36.5 ??C (97.7 ??F) 07/01/2024 9:28 AM ED T Respiratory Rate 18 07/01/2024 9:28 AM EDT Oxygen Saturation 98% 07/01/2024 9:28 AM EDT Inhaled Oxygen Concentration - - Weight 69.9 kg (154 lb 3.2 oz) 07/01/2024 9:28 A M EDT Height 163.8 cm (5' 4.5 ) 06/14/2024 12:50 PM ED T Body Mass Index 26.06 06/14/2024 12:50 PM EDT Plan of Treatment Upcoming Encounters Date Type Department Care Team (Late st Contact Info) Description 10/15/2024 2:15 PM EDT Office Visit [facility] [address] [place], [place] [phone] Kary Maher ANP [address] [place] [address] Health Maintenance Due Date Last Done Comments CT Colonography 1970 Colonoscopy 1969 FIT 1970 FOBT 1970 Sigmoidoscopy 1969 Alcohol/Substance Use Screening 1981 Hepatitis B Vaccines (1 of 3 - 19+ 3-dose series) 1988 Pneumococcal Vaccine: 50+ Years (1 of 2 - PCV) 1988 Zoster Vaccines (1 of 2) 2019 COVID-19 Vaccine (5 - season) 2023 07/06/2021, 03/09/2021, 09/14/2020, Additional history exists SDOH Screening 01/11/2024 01/10/2023 Diabetes: Hemoglobin A1C 01/17/2024 01/16/2023, 04/27 Depression Monitoring (PHQ-9) 08/11/2024 02/12/2024, 02/12/2024 Depression Screening 02/11/2025 02/12/2024, 02/12/20 Tobacco Screening 07/01/2025 07/01/2024 Colorectal Cancer Screening 01/16/2026 FIT DNA/Cologuard 01/16/2026 [...] Procedure Name Priority Date/Time Associated Diagnosis Comments ECG 12-LEAD Routine 07/01/2024 4:27 PM EDT Chest pain, unspecified type VENOUS BLOOD GAS Routine 07/01/2024 3:32 PM EDT XR CHEST 2 VIEWS Routine 06/14/2024 1:50 [...] GENERATION W/RFL Routine 05/10/2021 10:31 AM EST HEMOGLOBIN A1C Routine 05/10/2021 10:31 AM EST LIPID PANEL, STANDARD Routine 05/10/2021 10:31 AM EST from Last 3 Months or Most Recently Relevant to Health Maintenance Results * ECG 12 lead (07/01/2024 4:27 PM EDT) Narrative Kary Maher ANP - 07/01/2024 4:27 PM EDT 1:56pm HR 78, QT/QTC 378/430, normal axis, non-specific ST segment changes in V2, V3, V4 Kary DE LEÓN ECG ORDERABLES Edited Result - Final * (ABNORMAL) VENOUS BLOOD GAS (07/01/2024 3:32 PM EDT) Pathologist [facility] VB pH 7.36 7.32 - 7.43 [facility] Comment:METER #: [id number] additional_comment: [email or web address] VBG PCO2 57 mmHg [facility] Comment:METER #: [id number] additional_comment: [email or web address] VBG PO2 28 mmHg [facility] Comment:METER #: [id number] additional_comment: CBHO.BDAWEH VBG Base Excess 5.2 mmol/L [facility] Comment:METER #: [id number] additional_comment: CBHO.BDAWEH VBG HCO3 32(H) 22 - 26 mmol/L [facility] Comment:METER #: [id number] additional_comment: CBHO.[email or web address] O2 Sat, Bryn 41.0 % [facility] Comment:METER #: [id number] additional_comment: CBHO.BDAWEH 07/01/2024 3:32 PM EDT 07/01/2024 3:38 PM EDT us Generic External Data Provider LAB BLOOD ORDERAB LES Final Result [facility] [address] [place] [address] [phone] * XR Chest 2 Views (06/14/2024 1:50 PM EDT) Anatomical Region Laterality Modality Chest Radiographic Chela ging 06/14/2024 1:50 PM EDT Narrative 06/14/2024 2:44 PM EDT ?[facility] ?[address] ?[place] [address] ?XRay Report ? Signed ? Patient: Zurdo,Allen ?MR#: [id number] ?? 65 ? : 1970 ?Acct:[id number] ? Age/Sex: 54 / M ?ADM Date: 03/21/25 ? Loc: HO.HHCX ? Attending Dr: Diana Kevin MD ? Ordering Physician: Diana Kerr MD ?? Date of Service: 06/14/24 ?? Procedure(s): XR chest 2V ?? Accession Number(s): [id number] ? cc: Diana Kerr MD ? EXAMINATION: [...] DD/ 1350 ? TD/TT: 06/14/24 1413 ? Natural Resource Specialist: ? Procedure Note Lizeth, Image - 06/14/[address] [address] XRay Report Signed Patient: Allen RennerMR#: [id number] 65 : 1970Acct:[id number] Age/Sex: 54 / MADM Date: 06/14/24 Loc: HO.HHCX Attending Dr: Diana Kevin MD Ordering Physician: Diana Kerr MD Date of Service: 06/14/24 Procedure(s): XR chest 2V Accession Number(s): [id number] cc: Diana Kerr MD EXAMINATION: XR CHEST [...] Armando Acosta MD 06/14/2024 02:41 PM EDT RP Dictated By: Armando Rahman MD Signed By: <Electronically signed by Armando Osorio MDin OV> 06/14/24 1441 DD/ 1350 TD/TT: 06/14/24 1413 Natural Resource Specialist: Diana Kevin MD IMG XR PROCEDURES Fin al Result * POCT Rapid Influenza A MEYERS ID NOW (06/14/2024 1:36 PM EDT) [facility] Influenza A Negative Negative, Indeterminate [facility] QC Media Lot # [id number] [facility] Lot# Expiration Date 08, [facility] Swab 06/14/2024 1:36 PM EDT Diana Kevin MD POINT OF CARE TEST EN TER/EDIT ORDERABLES Final Result Performing Organization Address City/State/[facility] Co de Phone Number [facility] [address] [place] [phone] * POCT Rapid Covid-19 MEYERS ID NOW (06/14/2024 1:36 PM EDT) [facility] Coronavirus Antigen PCR Negative Negative, Indeterminate, None Detected, Invalid, Specimen unsatisfactory for evaluation, Weakly Positive QC Media Lot # [id number] Lot# Expiration Date , Swab 06/14/2024 1:36 PM EDT Result [facility] Diana Kevin MD POINT OF CARE TEST EN TER/EDIT ORDERABLES Final Result * POCT Rapid Influenza B MEYERS ID NOW (06/14/2024 1:25 PM EDT) [facility] Influenza B Negative Negative, Indeterminate [facility] QC Media Lot # [id number] [facility] Lot# Expiration Date 1,[id number] [facility] Swab 06/14/2024 1:25 PM EDT Diana Kevin MD POINT OF CARE TEST EN TER/EDIT ORDERABLES Final Result [facility] [address] [place] [address] [phone] * Cologuard?? colon cancer screening (01/16/2023 9:00 AM EDT) Cologuard Result Negative Negative 01/26/20 2:34 AM EDT [facility] (CLIA #:[id number]) Comment: NEGATIVE TEST RESULT. A negative Cologuard [...] Oliver et al, N Engl J Med 2014;370(14):1286- 1297) The normal value (reference range) for this assay is negative. COLOGUARD RE-SCREENING RECOMMENDATION: Periodic colorectal cancer screening is an important part of preventive healthcare for asymptomatic individuals at average risk for colorectal cancer. ??Following a negative Cologuard result, the [place] Cancer Society and U.S. Multi-Society Task Force screening guidelines recommend a Cologuard re-screening interval of 3 years. References: [place] Cancer Society Guideline for Colorectal Cancer Screening: https://www.cancer.org/cancer/ojyzh-molnhq-ocepkx/ypmghyyll-cdfazzhvu-vcbmtql/ac s-rec ommendations.html.; Khalif Agustin CR, Tonio WongK, Colorectal Cancer Screening: Recommendations for Physicians and Patients from the U.S. Multi-Society Task Force on Colorectal Cancer Screening , Am J Gastroenterology 2017; 112:9335-1971. TEST DESCRIPTION: Composite algorithmic analysis of stool [...] screened with both Cologuard and colonoscopy. (Melissa Sherwood al, N Engl J Med 2014;370(14):8429-5768.) Cologuard may produce a false negative or false positive result (no colorectal cancer or precancerous polyp present at colonoscopy follow up). A negative Cologuard test result does not guarantee the absence of CRC or advanced adenoma (pre-cancer). The current Cologuard screening interval is every 3 years. ([place] Cancer Society and U.S. Multi-Society Task Force). Cologuard performance data in a 10,000 patient pivotal study using colonoscopy as the reference method can be accessed at the following location: www.[employer].Massive/results. Additional description of the Cologuard test process, warnings and precautions can be found at www.VMIX Mediard.com. Stool specimen (specimen) 01/16/2023 9:00 AM EDT 01/18/2023 9:11 PM EDT us Preston Maher ANP LAB MOLECULAR DIAGNOSTICS ORDERA BLES Final Result [facility] (CLIA #:[id number]) [place] [place] [address], * HEPATITIS C AB W/REFL TO HCV RNA, QN, PCR (05/10/2021 10:31 AM EST) HEPATITIS C ANTIBODY NON-REACT JACI NON-REACT JACI [facility] INDEX 0.01 <1.00 [facility] Comment: ?? HCV antibody was non-reactive. There is no laboratory ?? evidence of HCV infection. ?? In most cases, no further action is required. However, if recent HCV exposure is suspected, a test for HCV RNA (test code 15207) is suggested. ?? For additional information please refer to http://education.Viagogo/faq/QXC20g9 (This link is being provided for informational/ educational purposes only.) ?? 05/10/2021 10:3 1 AM EST us Preston Maher ANP HISTORICAL/NON ORDERABLE LABS Fi nal Result Performing Organization Address [facility] Co de Phone Number [facility] [address] * HIV 1/2 ANTIGEN/ANTIBODY,FOURTH GENERATION W/RFL (05/10/2021 10:31 AM EST) HIV-1/2 ANTIGEN AND ANTIBODIES, 4TH GENERATION W/ REFLEX NON-REACT JACI NON-REACT JACI [facility] Comment: HIV-1 antigen and HIV-1/HIV-2 [...] ? For additional information please refer to http://education.CastTV.Massive/faq/XXB418 (This link is being provided for informational/ educational purposes only.) ? The performance of this assay has not been clinically validated in patients less than 2 years old. ?? 05/10/2021 10:3 1 AM EST Kary Maher [facility] BLOOD ORDERABLES Final Resul t Performing Organization Address [facility] Phone Number [facility] [address] * (ABNORMAL) HEMOGLOBIN A1c (05/10/2021 10:31 AM EST) Hemoglobin A1c 5.9(H) <5.7 % of total Hgb [facility] Comment: For someone without known diabetes, a hemoglobin ?? A1c value between 5.7% and 6.4% is consistent with prediabetes and should be confirmed with a ?? follow-up test. ?? For someone with known diabetes, a value <7% indicates that their diabetes is well controlled. A1c targets should be individualized based on duration of diabetes, age, comorbid conditions, and other considerations. ?? This assay result is consistent with an increased risk of diabetes. ?? Currently, no consensus exists regarding use of hemoglobin A1c for diagnosis of diabetes for children. ?? 05/10/2021 10:3 1 AM EST Kary Maher ANP LAB BLOOD ORDERABLES Final Resul t Performing Organization Address [facility] Phone Number [facility] [address] [place] [address], * (ABNORMAL) LIPID PANEL, STANDARD (05/10/2021 10:31 [...] ?? Willem WEATHERS et al. SORIN. 2013;310(19): 1519-4301 ?? (http://StashMetrics.Setgo/faq/KEA104) Non-HDL Cholesterol 183(H) <130 mg/dL (calc) [facility] [...] 2015;9:129-169. ?? 05/10/2021 10:3 1 AM EST Kary Maher [facility] BLOOD ORDERABLES Final Resul t [facility] [address] from Last 3 Months or Most Recently Relevant to Health Maintenance Insurance [employer] [facility] MEDICARE ADVANTAGE HMO Care Teams Transportation Agent Relationship Specialty Start Date End Date Kary Maher ANP [address] [place] [phone] PCP - General Family Medicine 04/19/21
--- OUTSIDE RECORDS SUMMARY | 2024-07-01 18:16 | XMS_ITS | Encounter Summary ---
Author Organization [employer] [facility] Address [address] [facility] 7t [place] [address] Care Team Providers Care Engineering Patternmaker Name Role Phone Kary Maher Primary Care Provider [phone] Reason for Visit * Reason Comments OV Encounter Details Date Type Department Care Team (Latest Contact Info) Description 07/01/2024 9:30 AM EDT Office Visit [facility] [address] [place], [place] [phone] Kary Maher ANP [address] [place] [address] Hypertriglyceridemia (Primary Dx); Essential hypertension; Prediabetes; Depressive disorder; Mild intermittent asthma, unspecified whether complicated; Aortic calcification (CMS/HCC); Chest pain, unspecified type Social History Tobacco Use Types Packs/Day Years [...] oz) 07/01/2024 9:28 A M EDT Height - - Body Mass Index 26.06 06/14/2024 12:50 PM EDT documented in this encounter Progress Notes * GENET Acuna - 07/01/2024 9:30 AM EDT Subjective Patient ID: Allen Renner is a 54 y.o. male who presents for OV . HPI PMH mild intellectual disability, HTN (BP now fine w/o meds), hypertriglyceridemia Recent sick visit 06/14/24 for cough. Treated w/ z-taylor and prednisone for 5d. Chest XR w/o PNA. FINDINGS: No consolidation, pleural effusion or pneumothorax. Subsegmental atelectasis versus scarring, right middle lung lobe. Cardiomediastinal silhouette size is normal. Calcified plaque thoracic aortic arch. Mild to moderate multilevel thoracic spondylosis. Lab Results Component Value Date HGBA1C 6.0 (H) 01/16/2023 HGBA1C 5.9 (H) 05/10/2021 Cologuard negative 12/2022 Never smoker Tells me he was in [facility] and was in hospital for 2d d/t cough, and said he underwent EKG and labs and all was good. Give me lab results from 05/21/24 that show TG at goal. TC 191, HDL 34.2, TG 146 Also w/ chest XR w/ similar findings as in XR 06/14/24 here Wants PNA vax another day Jewel HARE provided Maldivian interpretation. Review of Systems Constitutional: Negative for chills and fever. HENT: Negative for sore throat. Respiratory: Negative for cough and shortness of breath. Cardiovascular: Negative for chest pain. Gastrointestinal: Negative for constipation and diarrhea. Endocrine: Negative for polydipsia, polyphagia and polyuria. Genitourinary: Negative for dysuria. Skin: Negative for rash. Neurological: Negative for weakness. Objective BP 132/84 (BP Location: Left arm, Patient Position: Sitting, BP Cuff Size: Adult) Pulse85 Temp 97.7 ??F (36.5 ??C) (Oral) Resp 18 Wt 154 lb 3.2 oz (69.9 kg) SpO2 98% BMI 26.06 kg/m?? Physical Exam Constitutional: General: He is not in acute distress. Appearance: Normal appearance. He is not ill-appearing. HENT: Head: Normocephalic and atraumatic. Eyes: General: No scleral icterus. Extraocular Movements: Extraocular movements intact. Pupils: Pupils are equal, round, and reactive to light. Cardiovascular: Rate and Rhythm: Normal rate and regular rhythm. Pulmonary: Effort: Pulmonary effort is normal. No accessory muscle usage or respiratory distress. Breath sounds: No wheezing. Skin: General: Skin is warm and dry. Neurological: Mental Status: He is alert and oriented to person, place, and time. Mental status is at baseline. Psychiatric: Mood and Affect: Mood normal. Behavior: Behavior normal. Assessment/Plan Diagnoses and all orders for this visit: Depression Declines re-starting SSRI Hypertriglyceridemia Cont gemfibrozil. Lifestyle recommendations to improve heart health & lower cholesterol: be as active as able, ideally exercise 150min moderate intensity or 75min vigorous intensity weekly; increase intake of vegetables, fruits, whole grains, fish. Try to minimize intake of sugary or greasy food and drink. Use olive oil or vegetable, peanut, canola, or similar oil for cooking. Decrease or stop drinking alcoholif you drink, quit/decrease smoking if you smoke. - Lipid Panel, Standard; Future Essential hypertension Comments: doing well w/o meds. At/near goal today, </= 130/80. Continue to encourage low salt diet, regular exercise, home BP monitoring. Call clinic if BP is frequently >150/90 Go to ED/call 911 if > 170/100 and having sx such as AGUILERA, visual changes, chest pain, SOB Last renal function: Lab Results Component Value Date BUN 14 05/10/2021 Lab Results Component Value Date MICROALBCREA 170 (H) 05/10/2021 No results found for: MICROALBCREU Will recommend SGLT2i vs ACEi/ARB if albuminuria present on repeat Orders: - Comprehensive Metabolic Panel; Future - Albumin, Random Urine W/Creatinine; Future Prediabetes Encouraging exercise, recheck labs as below - Lipid Panel, Standard; Future (deferred given recent panel in [facility]) - Hemoglobin A1c; Future 07/01/24 Addendum Chest Pain After visit, at approx 1:45, pt came back to clinic and reported feeling unwell to front end application developer. Reported CP, feeling dizzy. EKG obtained here and no acute findings (but did have some non-specific changes) but recommended ED eval given sx. Pt transported by EMS. See RN note same DOS. documented in this encounter Plan of Treatment Upcoming Encounters Date Type Department Care Team (Late st Contact Info) Description 10/15/2024 2:15 PM EDT Office Visit [facility] [address] [place] [address] Kary Maher ANP [address] [place] [address] Scheduled Orders Name Type Priority Associated Diagnoses Orde r Schedule Hemoglobin A1c Lab Routine Prediabetes Expected: 07/01/2024 (Approximate), Expires: 07/01/2025 Comprehensive Metabolic Panel Lab Routine Essential hypertension Expected: 07/01/2024 (Approximate), Expires: 07/01/2025 Albumin, Random Urine W/Creatinine Lab Routine Essential hypertension Expected: 07/01/2024 (Approximate), Expires: 07/01/2025 documented as of this encounter Procedures Procedure Name Priority Date/Time Associated Diagnosis Comments ECG 12-LEAD Routine 07/01/2024 4:27 PM EDT Chest pain, unspecified type documented in this encounter Results * ECG 12 lead (07/01/2024 4:27 PM EDT) Narrative Kary Maher ANP - 07/01/2024 4:27 PM EDT 1:56pm HR 78, QT/QTC 378/430, normal axis, non-specific ST segment changes in V2, V3, V4 Kary DE LEÓN ECG ORDERABLES Edited Result - Final documented in this encounter Visit Diagnoses Diagnosis Hypertriglyceridemia- Primary Pure hyperglyceridemia Essential hypertension Unspecified essential hypertension Prediabetes Other abnormal glucose Depressive disorder Depressive disorder, not elsewhere classified Mild intermittent asthma, unspecified whether complicated Aortic calcification (CMS/HCC) Chest pain, unspecified type documented in this encounter Additional Health Concerns Assessment Noted Time PHQ-9 Depression Total Score: 11 1118/2 024 1:03 PM EST documented as of this encounter Care Teams Engineering Patternmaker Relationship Specialty Start Date End Date Kary Maher ANP [address] [place] [address] PCP - General Family Medicine 04/19/21 documented as of this encounter
--- OUTSIDE RECORDS SUMMARY | 2024-07-01 18:16 | XMS_ITS | Encounter Summary ---
Author Organization [employer] Address [address] [facility] 7[address] [place] [address] Care Team Providers Care Placement Secretary Name Role Phone Kary Maher Primary Care Provider [phone] Encounter Details Date Type Department Care Team (Latest Contact Info) Description 07/01/2024 Travel Social History Tobacco Use Types Packs/Day Years [...] Description 10/15/2024 2:15 PM EDT Office Visit [facility] [address] [place] [address] Kary Maher ANP [address] [place] [address] documented as of this encounter Visit Diagnoses Not on filedocumented in this encounter Additional Health Concerns Assessment Noted Time PHQ-9 Depression Total Score: 11 024 1:03 PM EST documented as of this encounter Care Teams Placement Secretary Relationship Specialty Start Date End Date Kary Maher ANP [address] [place] [address] PCP - General Family Medicine 04/19/21 documented as of this encounter
--- OUTSIDE RECORDS SUMMARY | 2024-07-01 18:16 | XMS_ITS | Encounter Summary ---
Author Organization [employer] Address [address] [facility] 7t [place] [address] Care Team Providers Care Electric Needle Specialist Name Role Phone Kary Maher Primary Care Provider Encounter Details Date Type Department Care Team ([facility] Contact Info) Description 07/01/2024 Orders Only GENERIC EXTERNAL DATA DEPARTMENT Provider, Generic External Data Social History Tobacco Use Types Packs/Day Years [...] Description 10/15/2024 2:15 PM EDT Office Visit [facility] [address] [place] [address] Kary Maher, ANP [address] [place] [address] documented as of this encounter Procedures Procedure Name Priority Date/Time Associated Diagnosis Comments VENOUS BLOOD GAS Routine 07/01/2024 3:32 PM EDT documented in this encounter Results * (ABNORMAL) VENOUS BLOOD GAS (07/01/2024 3:32 PM EDT) VBG pH 7.36 7.32 - 7.43 [facility] Comment:METER #: [id number] additional_comment: CBHO.BDAWEH VBG PCO2 57 mmHg [facility] Comment:METER #: [id number] additional_comment: CBHO.BDAWEH VBG PO2 28 mmHg [facility] Comment:METER #: [id number] additional_comment: CBHO.BDAWEH VBG Base Excess 5.2 mmol/L [facility] Comment:METER #: [id number] additional_comment: CBHO.BDAWEH VBG HCO3 32(H) 22 - 26 mmol/L [facility] Comment:METER #: [id number] additional_comment: CBHO.BDAWEH O2 Sat, Bryn 41.0 % [facility] Comment:METER #: [id number] additional_comment: CBHO.BDAWEH 07/01/2024 3:32 PM EDT 07/01/2024 3:38 PM EDT us Generic External Data Provider LAB BLOOD ORDERAB LES Final Result [facility] [address] [place] [address] [phone] documented in this encounter Visit Diagnoses Not on filedocumented in this encounter Additional Health Concerns Assessment Noted Time PHQ-9 Depression Total Score: 11 02/11/ 024 1:03 PM EST documented as of this encounter Care Teams Electric Needle Specialist Relationship Specialty Start Date End Date Kary Maher ANP [address] [place] [address] PCP - General Family Medicine 04/19/21 documented as of this encounter
[2024-07-01] MEDS: iohexoL 350 MG/ML 100 ML INFUS..BTL 65 ML IV (18:34)
[2024-07-01] MEDS: Albuterol Sulfate 2.5 MG, Albuterol/Iprat 2.5/0.5MG 3 ML 3 ML INHALE (20:06)
[2024-07-01] MEDS: methylPREDNISolone Sod Succ 125 MG/2 ML VIAL IVPUSH (20:27)
[2024-07-01] MEDS: Albuterol Sulfate 90 MCG 8 GM INHALER 2 PUFF INHALE (21:02)
== END 2024-07-01 21:19 | disposition home or self-care (01) ==
PROVIDERS: Emergency Medicine; Emergency Provider Internal Medicine; PCP Internal Medicine
DX: J40 Bronchitis, not specified as acute or chronic (principal); R07.89 Other chest pain; R05.9 Cough, unspecified; R50.9 Fever, unspecified; R09.02 Hypoxemia; R06.02 Shortness of breath; Z03.818 Encounter for observation for suspected exposure to other biological agents ruled out; Z79.899 Other long term (current) drug therapy
CPT/HCPCS: 0241U; 36415; 71275; 80048; 80076; 82803; 83605; 83735; 83880; 84484; 85025; 87040; 93005; 94640; 96374; 96375; 99285; J0696; J2919; Q9967

== ENCOUNTER → 2024-07-01 14:57 | Outpatient (BNV) | payer MEDICARE, MEDICAID, SELFPAY | PROVIDERS: Emergency Provider Internal Medicine; PCP Internal Medicine; Visit Provider Internal Medicine Cardiovascular Disease | DX: R07.9 Chest pain, unspecified (principal) | CPT/HCPCS: 93010 ==

== ENCOUNTER → 2024-07-01 15:02 | Outpatient (BNV) | payer MEDICARE, MEDICAID, SELFPAY | PROVIDERS: Emergency Provider Internal Medicine; PCP Internal Medicine; Visit Provider Radiology Diagnostic Radiology | DX: J98.11 Atelectasis (principal) | CPT/HCPCS: 71275 ==

== ENCOUNTER 2024-08-07 10:39 | Outpatient (REF) | payer MEDICARE, MEDICAID, SELFPAY ==
--- NOTE | ~2024-08-07 | MM_ITS ---
EXAMINATION: DXA BONE DENSITY AXIAL HISTORY: Osteopenia on CT 07/01/24 TECHNIQUE: Nestio Dual energy absorptiometry (DEXA) of the lumbar spine, total left hip, and femoral neck was performed. COMPARISON: There are no prior studies for comparison. FINDINGS: The bone mineral density of the lumbar spine is 1.173 with a T-score of -0.3, and a Z-score of -0.2. This is indicative of normal bone mineral density. The bone mineral density of the left total hip is 1.027 with a T-score of -0.5, and a Z-score of -0.2. This is indicative of normal bone mineral density. The bone mineral density of the left femoral neck is 0.912 with a T-score of -1.2, and a Z-score of -0.5. This is indicative of osteopenia. FRACTURE RISK: The FRAX index suggests a risk of major osteoporotic fracture of 2.6%, and of hip fracture 0.2%. MM/XR DEXA axial skeleton IMPRESSION: Based on bone mineral density, and according to World Health Organization (WHO) criteria, the diagnosis is consistent with osteopenia. All bone density values are in grams per centimeter squared (g/cm2). Statistically, 68% of repeat scans fall within 1 SD (+/- 0.010 g/cm2 for AP spine L1-L4) and 1 SD (+/- 0.012 g/cm2 for femur total) FRAX is a trademark of the [employer]'s [place] [employer] Metabolic Bone Disease, a World Health Organization (WHO) Collaborating Center. Electronically signed by: Mt Epps MD 08/07/2024 11:53 AM EDT
--- OUTSIDE RECORDS SUMMARY | 2024-08-07 11:42 | XMS_ITS | Encounter Summary ---
Author Organization [employer] Address [address] [facility] 7[address] [place] [address] Care Team Providers Care Software Configuration Manager Name Role Phone Kary Maher GENET Primary Care Provider [phone] Encounter Details Date Type Department Care Team ([facility] Contact Info) Description 05/16/2023 Orders Only [facility] [address] [place] [address] ProviderCarole MD Social History Tobacco Use Types [...] Care Team (Late st Contact Info) Description 08/07/2024 2:00 PM EDT Office Visit [facility] [address] [place] [address] Briseyda Ty DDS [address] [place] [address] 10/15/2024 2:15 PM EDT Office Visit [facility] [address] [place] [address] Kary Maher ANP [address] [place] [address] documented as of this encounter Procedures Procedure [...] documented as of this encounter Care Teams Software Configuration Manager Relationship Specialty Start Date End Date Kary Maher ANP [address] [place] [address] PCP - General Family Medicine 04/19/21 documented as of this encounter
--- OUTSIDE RECORDS SUMMARY | 2024-08-07 11:42 | XMS_ITS | Clinical Summary ---
Author Organization [employer] Address [address] [facility] 7[address] [place] [address] Care Team Providers Care Fire Hydrant Operator Name Role Phone Kary Maher Primary Care Provider [phone] Allergies No known active allergies Medications * This document contains information received from the source organization and may not represent a complete record from that organization. azithromycin (Zithromax) 250 MG tabletIndications: Bronchitis Take 2 tabs PO daily x 1d then 1 tab PO daily on D2 to D5 6 tablet 5 Active atorvastatin (Lipitor) 20 MG tabletIndications: Hypertriglyceridem ia,Aortic calcification (CMS/HCC) Take 1 tablet (20 mg) by mouth Once per day. 90 tablet 3 5 07/02/19 26 Active Calcium Carb-Cholecalcifer ol 600-10 MG-MCG capsuleIndications :Osteopenia, unspecified location Take 1 tablet by mouth 2 times daily. 180 capsule 1 5 Active albuterol 108 (90 Base) MCG/ACT inhalerIndications :Mild intermittent asthma, unspecified whether complicated Inhale 2 puffs every 6 (six) hours if needed for shortness of breath or wheezing. 18 g 1 5 07/05/19 26 Active Active Problems Problem Noted Date Diagnosed [...] Encounters Date Type Department Care Team Description 07/04/2024 11:30 AM EDT Office Visit [facility] [address] [place] [phone] Kary Maher ANP Bronchitis (Primary Dx); Atelectasis; Mild intermittent asthma, unspecified whether complicated; Osteopenia, unspecified location 07/04/2024 Travel 07/03/2024 Telephone [facility] [address] [place] [phone] Luh Figueroa [place] chart prep 07/01/2024 9:30 AM EDT Office Visit [address] [address] Kary Maher ANP Hypertriglyceridemia (Primary Dx); Essential hypertension; Prediabetes; Depressive disorder; Mild intermittent asthma, unspecified whether complicated; Aortic calcification (CMS/HCC); Chest pain, unspecified type 07/01/2024 Orders Only GENERIC EXTERNAL DATA DEPARTMENT Provider, Generic External Data 07/01/[address] [address] Kary Maher ANP 07/01/2024 Travel 06/21/2024 Patient Outreach [address] [address] Kary Maher ANP Pre-visit Planning (Pre-visit planning - LVM ) 06/19/2024 Telephone [facility] [address] [place] [address] Diana Kerr MD 06/18/2024 Refill [facility] [address] [place] [address] Kary Maher ANP Pure hyperglyceridemia 06/14/2024 1:00 PM EDT Office Visit [facility] [address] [place] [address] Diana Kerr MD Bronchitis from Last 3 Months Immunizations Immunization Administration Dates Next Due Influenza injectable quadrivalent [...] Sign Reading Time Taken Comments Blood Pressure 126/78 07/04/2024 12:11 PM EDT Pulse 85 07/04/2024 11:42 AM EDT Temperature 36.5 ??C (97.7 ??F) 07/04/2024 11:42 AM E DT Respiratory Rate 14 07/04/2024 11:42 AM EDT Oxygen Saturation 97% 07/04/2024 11:42 AM EDT Inhaled Oxygen Concentration - - Weight 69.5 kg (153 lb 3.2 oz) 07/04/2024 11:42 AM EDT Height 163.8 cm (5' 4.5 ) 06/14/2024 12:50 PM ED T Body Mass Index 25.89 06/14/2024 12:50 PM EDT Plan of Treatment Upcoming Encounters Date Type Department Care Team (Late st Contact Info) Description 08/07/2024 2:00 PM EDT Office Visit [facility] [address] [place] [address] Briseyda Ty, DDS [address] [place] [address] 10/15/2024 2:15 PM EDT Office Visit [facility] [address] [place] [address] Kary Maher, GENET [address] [place] [address] Health Maintenance Due Date Last Done Comments CT Colonography 1970 Colonoscopy 1969 Dental Oral Exam 1969 FIT 1970 FOBT 1970 Sigmoidoscopy 1969 Hepatitis B Vaccines (1 of 3 - 19+ 3-dose series) 1988 Pneumococcal Vaccine: 50+ Years (1 of 2 - PCV) 1988 Dental Prophylaxis 08/05/2011 02/03/2011, 10/01/2009 Dental X-Ray: Bitewings 02/05/2012 02/03/2011, 03/06 Dental X-Ray: Full Mouth 02/04/2014 02/03/2011 Zoster Vaccines (1 of 2) 2019 COVID-19 Vaccine ( season) 2023 07/06/2021, 03/09/2021, 09/14/2020, Additional history exists SDOH Screening 01/11/2024 01/10/2023 Diabetes: Hemoglobin A1C 01/17/2024 01/16/2023, 04/27 Depression Screening 02/11/2025 02/12/2024, 02/12/20 Alcohol/Substance Use Screening 07/04/2025 07/04/2024 Tobacco Screening 07/04/2025 07/04/2024 Colorectal Cancer Screening 01/16/2026 FIT DNA/Cologuard 01/16/2026 [...] patient's age to complete this topic Meningococcal B Vaccine Aged Out No l onger eligible based on patient's age to complete [...] Procedure Name Priority Date/Time Associated Diagnosis Comments CTA CHEST PE PROTOCAL Routine 07/01/2024 7:20 PM EDT ECG 12-LEAD Routine 07/01/2024 4:27 PM EDT [...] PANEL, STANDARD Routine 05/10/2021 10:31 AM EST PROPHYLAXIS - ADULT Routine 02/03/2011 1 2:00 AM EST INTRAORAL - COMPLETE SERIES OF RADIOGRAPHIC IMAGES Routine 02/03/2011 12:00 AM EST from Last 3 Months or Most Recently Relevant to Health Maintenance Results * CTA Chest PE Protocal (07/01/2024 7:20 PM EDT) Anatomical Region Laterality Modality Body, Chest Computed Tomogra phy 07/01/2024 7:20 PM EDT Narrative 07/01/2024 7:21 PM EDT ? [facility] ?[address] ?[place] [address] ? CT Scan Report ? Signed ? Patient: Renner,Allen ?MR#: [id number] ?? 65 ? : 1970 ?Acct:[id number] ? Age/Sex: 54 / M ?ADM Date: 07/01/24 ? Loc: HO.ED ? Attending Dr: ? Ordering Physician: Ladonna vEans DO ?? Date of Service: 07/01/24 ?? Procedure(s): CT angio chest PE protocol ?? Accession Number(s): [id number] ? cc: Ladonna Evans DO; Poncho Bourne MD ? Report Number: ?? [id number]: Total DLP = ??237.00 mGy-cm ? CLINICAL HISTORY: hypoxia, pleuritic L sided chest pain ? CT angiography chest with contrast. 3D Postprocessing. ? Comparison: None ? Findings: ?? The heart is normal size. RV/LV ratio is normal. ?? Unremarkable thoracic aorta and great vessels. No aneurysm. ?? No central or large proximal pulmonary emboli. Remaining pulmonary ?? arteries are poorly opacified, not well evaluated, specifically in the ?? right lower lobe pulmonary arteries. ?? The visualized thyroid and mediastinum are unremarkable. ? Pkgmf-olmsnpv-iiqf-left bilateral atelectasis. ?? No significant pleural effusion or pneumothorax. ? Motion and streak artifact limit evaluation. Hepatic steatosis noted. ?? Osteopenia with diffuse multilevel spondylosis. ? IMPRESSION: ?? 1. Motion degraded exam. ?? 2. No central or large proximal pulmonary emboli. Remaining pulmonary ?? arteries are poorly opacified, not well evaluated, specifically in the ?? right lower lobe pulmonary arteries. ?? 3. Anloy-qvvtdwk-vfpd-left bilateral atelectasis. ? This document has been electronically signed by: Rei Call MD on ?? 07/01/2024 19:20:11 ? Dictated By: ?Rei Call MD ? Signed By: ?<Electronically signed by Rei Call MD in OV> ?07/01/241919 ? DD/ 19 ? TD/TT: 07/01/241919 ? Meeting/Event Planner: ? Procedure Note Donotuseinterpreter, Image - 07/01/[address] [address] [address] Scan Report Signed Patient: Allen RennerMR#: [id number] 65 : 1970Acct:[id number] Age/Sex: 54 / MADM Date: 07/01/24 Loc: HO.ED Attending Dr: Ordering Physician: Ladonna Evans DO Date of Service: 07/01/24 Procedure(s): CT angio chest PE protocol Accession Number(s): [id number] cc: Ladonna Evans DO; Poncho Bourne MD Report Number: [id number]: Total DLP = 237.00 mGy-cm CLINICAL HISTORY: hypoxia, pleuritic L sided chest pain CT angiography chest with contrast. 3D Postprocessing. Comparison: None Findings: The heart is normal size. RV/LV ratio is normal. Unremarkable thoracic aorta and great vessels. No aneurysm. No central or large proximal pulmonary emboli. Remaining pulmonary arteries are poorly opacified, not well evaluated, specifically in the right lower lobe pulmonary arteries. The visualized thyroid and mediastinum are unremarkable. Watge-skqlkwt-opvz-left bilateral atelectasis. No significant pleural effusion or pneumothorax. Motion and streak artifact limit evaluation. Hepatic steatosis noted. Osteopenia with diffuse multilevel spondylosis. IMPRESSION: 1. Motion degraded exam. 2. No central or large proximal pulmonary emboli. Remaining pulmonary arteries are poorly opacified, not well evaluated, specifically in the right lower lobe pulmonary arteries. 3. Swejt-uvpzezr-jded-left bilateral atelectasis. This document has been electronically signed by: Rei Call MD on 07/01/2024 19:20:11 Dictated By: Rei Call MD Signed By: <Electronically signed by Rei Clal MD in OV> 07/01/241919 DD/ 19 TD/TT: 07/01/241919 Meeting/Event Planner: [facility] External Provider IMG CT PROCEDURES Final Result * ECG 12 lead (07/01/2024 4:27 PM EDT) Narrative Kary Maher ANP - 07/01/2024 4:27 PM EDT 1:56pm HR 78, QT/QTC 378/430, normal axis, non-specific ST segment changes in V2, V3, V4 Kary DE LEÓN ECG ORDERABLES Edited Result - Final * (ABNORMAL) VENOUS BLOOD GAS (07/01/2024 3:32 PM EDT) VBG pH 7.36 7.32 - 7.43 [facility] Comment:METER #: [id number] additional_comment: CBHO.BDAWEH VBG PCO2 57 mmHg [facility] Comment:METER #: [id number] additional_comment: CBHO.BDAWEH VBG PO2 28 mmHg [facility] Comment:METER #: [id number] additional_comment: CBHO.BDAWEH VBG Base Excess 5.2 mmol/L [facility] Comment:METER #: [id number] additional_comment: CBHO.BDAWEH VBG HCO3 32(H) 22 - 26 mmol/L [facility] Comment:METER #: [id number] additional_comment: CBHO.BDAWEH O2 Sat, Bryn 41.0 % [facility] Comment:METER #: [id number] additional_comment: CBHO.BDAWEH 07/01/2024 3:32 PM EDT 07/01/2024 3:38 PM EDT Generic External Data Provider LAB BLOOD ORDERAB LES Final Result [facility] [address] [place] [phone] * XR Chest 2 Views (06/14/2024 1:50 PM EDT) Anatomical Region Laterality Modality Chest Radiographic Chela ging 06/14/2024 1:50 PM EDT Narrative 06/14/2024 2:44 PM EDT ?[facility] ?[address] ?[place] [address] ?XRay Report ? Signed ? Patient: Renner,Allen ?MR#: [id number] ?? 65 ? : 1970 ?Acct:[id number] ? Age/Sex: 54 / M ?ADM Date: 06/14/24 ? Loc: HO.HHCX ? Attending Dr: Diana Kevin MD ? Ordering Physician: Diana Kerr MD ?? Date of Service: 06/14/24 ?? Procedure(s): XR chest 2V ?? Accession Number(s): [id number] ? cc: Diana Kerr MD ? EXAMINATION: [...] DD/ 1350 ? TD/TT: 06/14/24 1413 ? Meeting/Event Planner: ? Procedure Note Roxanne Stanley - 06/14/[address] [address] XRay Report Signed Patient: Allen RennerMR#: [id number] 65 : 1970Acct:[id number] Age/Sex: 54 / MADM Date: 06/14/24 Loc: HO.HHCX Attending Dr: Diana Kevin MD Ordering Physician: Diana Kerr MD Date of Service: 06/14/24 Procedure(s): XR chest 2V Accession Number(s): [id number] cc: Diana Kerr MD EXAMINATION: XR CHEST [...] 06/14/24 1441 DD/ 1350 TD/TT: 06/14/24 1413 Meeting/Event Planner: us Diana Kevin MD IMG XR PROCEDURES Fin al Result * POCT Rapid Influenza A MEYERS ID NOW (06/14/2024 1:36 PM EDT) Influenza A Negative Negative, Indeterminate [facility] QC Media Lot # [id number] [facility] Lot# Expiration Date [id number] [facility] Swab 06/14/2024 1:36 PM EDT us Diana Kevin MD POINT OF CARE TEST EN TER/EDIT ORDERABLES Final Result [facility] [address] [place] [phone] * POCT Rapid Covid-19 MEYERS ID NOW (06/14/2024 1:36 PM EDT) Pathologist [facility] Coronavirus Antigen PCR Negative Negative, Indeterminate, None Detected, Invalid, Specimen unsatisfactory for evaluation, Weakly Positive QC Media Lot # [id number] Lot# Expiration Date [id number] Swab 06/14/2024 1:36 PM EDT Diana Kevin MD POINT OF CARE TEST EN TER/EDIT ORDERABLES Final Result * POCT Rapid Influenza B MEYERS ID NOW (06/14/2024 1:25 PM EDT) [facility] Influenza B Negative Negative, Indeterminate [facility] QC Media Lot # [id number] [facility] Lot# Expiration Date , [facility] Swab 06/14/2024 1:25 PM EDT Diana Kevin MD POINT OF CARE TEST EN TER/EDIT ORDERABLES Final Result [facility] [address] [place] [phone] * Cologuard?? colon cancer screening (01/16/2023 9:00 AM EDT) [facility] Cologuard Result Negative Negative 01/26/20 2:34 AM EDT [facility] (CLIA #:[id number]) Comment: NEGATIVE TEST RESULT. A negative Cologuard [...] (Melissa Sherwood al, N Engl J Med 2014;370(14):1286- 1297) The normal value (reference range) for this assay is negative. COLOGUARD RE-SCREENING RECOMMENDATION: Periodic colorectal cancer screening is an important part of preventive healthcare for asymptomatic individuals at average risk for colorectal cancer. ??Following a negative Cologuard result, the [place] Cancer Society and U.S. Multi-Society Task Force screening guidelines recommend a Cologuard re-screening interval of 3 years. References: [place] [employer] Guideline for Colorectal Cancer Screening: https://www.cancer.org/cancer/wscqz-eslpin-naaqwg/mddvzzjzk-yggaizwao-ywpqinv/ac s-rec ommendations.html.; Ollie VERDE, Khalif RUSSELL, Tonio WongK, Colorectal Cancer Screening: Recommendations for Physicians and Patients from the U.S. Multi-Society Task Force on Colorectal Cancer Screening , Am J Gastroenterology 2017; 112:9815-4888. TEST DESCRIPTION: Composite algorithmic analysis of stool [...] screened with both Cologuard and colonoscopy. (Melissa Chahal, N Engl J Med 2014;370(14):9939-4913.) Cologuard may produce a false negative or false positive result (no colorectal cancer or precancerous polyp present at colonoscopy follow up). A negative Cologuard test result does not guarantee the absence of CRC or advanced adenoma (pre-cancer). The current Cologuard screening interval is every 3 years. ([place] Cancer Society and U.S. Multi-Society Task Force). Cologuard performance data in a 10,000 patient pivotal study using colonoscopy as the reference method can be accessed at the following location: www.Scirra/results. Additional description of the Cologuard test process, warnings and precautions can be found at www.cologPHARMAJETrd.com. Stool specimen (specimen) 01/16/2023 9:00 AM EDT 01/18/2023 9:11 PM EDT us Kary Maher ANP LAB MOLECULAR DIAGNOSTICS ORDERA BLES Final Result Performing Organization Address [facility] Co de Phone Number [facility] (CLIA #:[id number]) [place] [address], * HEPATITIS C AB W/REFL TO HCV RNA, QN, PCR (05/10/2021 10:31 AM EST) HEPATITIS C ANTIBODY NON-REACT JACI NON-REACT JACI [facility] INDEX 0.01 <1.00 [facility] Comment: ?? HCV antibody was non-reactive. There is no laboratory ?? evidence of HCV infection. ?? In most cases, no further action is required. However, if recent HCV exposure is suspected, a test for HCV RNA (test code 72433) is suggested. ?? For additional information please refer to http://education.Nuji.Poliana/faq/URY59n7 (This link is being provided for informational/ educational purposes only.) ?? 05/10/2021 10:3 1 AM EST us Kary Maher ANP HISTORICAL/NON ORDERABLE LABS Fi nal Result Performing Organization Address [facility]/ZIP Co de Phone Number [facility] [address] * HIV 1/2 ANTIGEN/ANTIBODY,FOURTH GENERATION W/RFL (05/10/2021 10:31 AM EST) HIV-1/2 ANTIGEN AND ANTIBODIES, 4TH GENERATION W/ REFLEX NON-REACT JACI NON-REACT JACI [facility] Comment: HIV-1 antigen and HIV-1/HIV-2 [...] ? For additional information please refer to http://Hack Upstate.epacube/faq/XFA528 (This link is being provided for informational/ educational purposes only.) ? The performance of this assay has not been clinically validated in patients less than 2 years old. ?? 05/10/2021 10:3 1 AM EST [facility] BLOOD ORDERABLES Final Resul t [facility] [address] * (ABNORMAL) HEMOGLOBIN A1c (05/10/2021 10:31 AM EST) Hemoglobin A1c 5.9(H) <5.7 % of total Hgb [facility] Comment: For someone without known [...] children. ?? 05/10/2021 10:3 1 AM EST us Preston Gunnar ANP LAB BLOOD ORDERABLES Final Resul t Performing Organization Address [facility] Co de Phone Number [facility] [address] [place] [address], * (ABNORMAL) LIPID PANEL, STANDARD (05/10/2021 10:31 [...] ?? Willem WEATHERS et al. SORIN. 2013;310(19): 7074-4597 ?? (http://education.Teach 'n Go/faq/UAU219) Non-HDL Cholesterol 183(H) <130 mg/dL (calc) FOUNDATION [...] ORDERABLES Final Resul t Performing Organization Address [facility] Co de Phone Number [facility] [address] [place] [address], [place] from Last 3 Months or Most Recently Relevant to Health Maintenance Insurance [facility] STANDARD [facility] MEDICARE ADVANTAGE HMO DENTAL - [facility] PPO DENTAL-[facility] MEDICAID STAND ADULT Care Teams Fire Hydrant Operator Relationship Specialty Start Date End Date Kary Maher ANP [address] [place] [phone] PCP - General Family Medicine 04/19/21
== END 2024-08-07 10:40 | disposition home or self-care (01) ==
LOC: HO.MAMMO 10:39
PROVIDERS: PCP Nurse Practitioner Primary Care; Visit Provider Nurse Practitioner Primary Care
DX: Z13.820 Encounter for screening for osteoporosis (principal); M85.852 Other specified disorders of bone density and structure, left thigh
CPT/HCPCS: 77080

== ENCOUNTER → 2024-08-07 11:00 | Outpatient (BNV) | payer MEDICARE, MEDICAID, SELFPAY | PROVIDERS: PCP Nurse Practitioner Primary Care; Visit Provider Radiology Diagnostic Radiology | DX: M85.851 Other specified disorders of bone density and structure, right thigh (principal) | CPT/HCPCS: 77080 ==

== ENCOUNTER 2024-08-22 10:30 | Outpatient (REF) | payer MEDICARE, MEDICAID, SELFPAY ==
--- NOTE | 2024-08-22 | PFT_ITS ---
Indication: Dyspnea Spirometry [FEV1 to FVC 84%; FEV1 2.72 L; FVC 3.23 L. No significant response to bronchodilators noted, although there was a trend.] Lung Volumes [Total lung capacity 90% predicted; residual volume 139% predicted] Diffusion Capacity [DLCO 101% predicted] Comparisons [none] Interpretation [No obstructive nor restrictive ventilatory defects identified. No significant response to bronchodilators noted. Lung volumes with significant air trapping which could be due to underlying small airways disease. Diffusing capacity is within normal limits. If asthma is under differential methacholine challenge helpful in assessing for hyperreactive airways. Clinical correlation warranted.] MTDD
--- OUTSIDE RECORDS SUMMARY | 2024-08-22 10:57 | XMS_ITS | Encounter Summary ---
Author Organization [employer] Address [address] [facility] [facility] [address] [place] [address] Care Team Providers Care Training Coordinator Name Role Phone Kary Maher Primary Care Provider [phone] Encounter Details Date Type Department Care Team ([facility] Contact Info) Description 05/16/2023 Orders Only [facility] [address] [place] [address] Provider, MD Carole Social History Tobacco Use Types Packs/Day Years [...] as of this encounter Plan of Treatment Not on file documented as of this encounter Procedures Procedure [...] documented as of this encounter Care Teams Training Coordinator Relationship Specialty Start Date End Date Kray Maher ANP [address] [place] [id number] PCP - General Family Medicine 04/19/21 documented as of this encounter
[2024-08-22 11:16] VITALS: PULSE 76; O2SAT 95
== END 2024-08-22 10:31 | disposition home or self-care (01) ==
LOC: HO.RESP 10:30
PROVIDERS: PCP Nurse Practitioner Primary Care; Visit Provider Nurse Practitioner Primary Care
DX: J45.20 Mild intermittent asthma, uncomplicated (principal)
CPT/HCPCS: 94010; 94640; 94727; 94729

== ENCOUNTER → 2024-08-22 10:40 | Outpatient (BNV) | payer MEDICARE, MEDICAID, SELFPAY | PROVIDERS: PCP Nurse Practitioner Primary Care; Visit Provider Hospitalist | DX: R94.2 Abnormal results of pulmonary function studies (principal) | CPT/HCPCS: 94060; 94727; 94729 ==